=== PATIENT | female | born 1975 | race Caucasian/White ===

== ENCOUNTER 2018-10-02 20:18 | Emergency (ER) | payer SELFPAY ==
--- NOTE | 2018-10-02 21:22 | ED ---
Lower Extremity - HPI Summary HPI Summary: 42-year-old female presents with right foot and ankle injuries today. States that the dresser and bookcase landed on her right foot and right ankle. States she is able to ambulate with some pain. She denies any previous fracture to the area. No numbness or tingling. Has tenderness over lateral malleolus and top of right foot. - History of Current Complaint Chief Complaint: EDExtremityLower Stated Complaint: HURT ANKLE PER PT Time Seen by Provider: 10/02/18 20:25 Pain Intensity: 8 - Allergies/Home Medications Allergies/Adverse Reactions: Allergies Allergy/AdvReac Type Severity Reaction Status Date / Time lanocaine Allergy Palpitation Uncoded 10/02/18 20:21 s novacaine Allergy Palpitation Uncoded 10/02/18 20:21 s Home Medications: Home Medications busPIRone TAB* [Buspar TAB*] 10 mg PO TID 10/02/18 [History Confirmed 10/02/18] PMH/Surg Hx/FS Hx/Imm Hx Endocrine/Hematology History: Denies: Hx Anticoagulant Therapy Respiratory History: Denies: Hx Asthma Infectious Disease History: No Infectious Disease History: Denies: Traveled Outside the [place] in Last 30 Days - Family History Known Family History: Positive: Non-Contributory - Social History Alcohol Use: None Substance Use Type: Reports: None Smoking Status (MU): Heavy Every Day Tobacco Smoker Review of Systems Negative: Fever Negative: Chest Pain Negative: Shortness Of Breath Positive: Other - right foot pain All Other Systems Reviewed And Are Negative: Yes Physical Exam Triage Information Reviewed: Yes Vital Signs On Initial Exam: Initial Vitals Temp Pulse Resp BP Pulse Ox 98.1 F 60 16 99/62 99 10/02/18 20:21 10/02/18 20:21 10/02/18 20:21 10/02/18 20:21 10/02/18 20:21 Vital Signs Reviewed: Yes Appearance: Positive: Well-Appearing Skin: Positive: Warm, Dry Head/Face: Positive: Normal Head/Face Inspection Eyes: Positive: Normal, Conjunctiva Clear ENT: Positive: Pharynx normal Respiratory/Lung Sounds: Positive: Clear to Auscultation, Breath Sounds Present Cardiovascular: Positive: Normal, RRR Musculoskeletal: Positive: Strength/ROM Intact - right foot, Other - tenderness lateral malleolus and across top of right foot Procedures - Splinting foot Location: right foot Hand-Made Type: orthoglass Splint: posterior walking Pre-Proc Neuro Vasc Exam: normal Post-Proc Neuro Vasc Exam: normal Diagnostics - Vital Signs Vital Signs Temp Pulse Resp BP Pulse Ox 10/02/18 20:21 98.1 F 60 16 99/62 99 - Laboratory Lab Statement: Any lab studies that have been ordered have been reviewed, and results considered in the medical decision making process. - Radiology foot Radiology Interpretation Completed By: ED Physician Summary of Radiographic Findings: possible cuneiform fracture ankle Radiology Interpretation Completed By: ED Physician Summary of Radiographic Findings: no fracture Lower Extremity Course/Dx - Course Course Of Treatment: 42-year-old female presents with right foot and ankle injuries today. States that the dresser and bookcase landed on her right foot and right ankle. States she is able to ambulate with some pain. She denies any previous fracture to the area. No numbness or tingling. Has tenderness over lateral malleolus and top of right foot. On exam neurovascular intact. Tenderness to lateral malleolus and top of right foot. X-ray read by me as possible cuneiform fracture. Placed in a posterior walking splint and gave crutches. told to Ice and elevate. Told to follow up with ortho. Told to call for final reading tomorrow as questionable fracture. Patient understands agrees plan. - Diagnoses Differential Diagnosis/HQI/PQRI: Positive: Fracture (Closed), Sprain, Strain Provider Diagnoses: Injury of right foot, Right ankle pain Discharge - Sign-Out/Discharge Documenting (check all that apply): Patient Departure Patient Received Moderate/Deep Sedation with Procedure: No - Discharge Plan Condition: Good Disposition: HOME Patient Education Materials: Foot Fracture in Adults (ED) Referrals: Christine Richardson MD [Medical Doctor] - Additional Instructions: I am reading xray as potential fracture, final read will be available tomorrow Use crutches and stay nonweight bearing Keep splint on area and keep dry Call ortho to set up appointment for follow up Use ibuprofen or tyenlol for pain every 6 hours Ice, elevate Return to ED if develop any new or worsening symptoms - Billing Disposition and Condition Condition: GOOD Disposition: Home
[2018-10-02 21:55] VITALS: BP 95/54
== END 2018-10-02 21:54 | disposition home or self-care (01) ==
LOC: ED 20:18
DX: S99.921A Unspecified injury of right foot, initial encounter (principal); M25.571 Pain in right ankle and joints of right foot; W20.8XXA Other cause of strike by thrown, projected or falling object, initial encounter; Y92.9 Unspecified place or not applicable; Z88.4 Allergy status to anesthetic agent; F17.210 Nicotine dependence, cigarettes, uncomplicated; Z79.899 Other long term (current) drug therapy
CPT/HCPCS: 99282

== ENCOUNTER 2018-11-18 11:38 | Emergency (ER) | payer SELFPAY ==
[2018-11-18] MEDS ORDERED: NS 0.9% 1000 ML** 1,000 ML IV ONE (11:47)
[2018-11-18] MEDS ORDERED: Iodixanol* (CONTRAST) 320 MG/ML 100 ML SDV IV ONE (12:08)
--- NOTE | 2018-11-18 12:40 | ED ---
Neurological HPI - HPI Summary HPI Summary: This patient is a 43 year old F presenting to [facility] accompanied by with a chief complaint of heart palpitations since AM 11/18/18. Patient states that she woke up with a BURTON that resolved w tylenol. She states she has a history of chronic headaches and this is typical for her. Afterwards, she was driving a friend to work she experienced heart palpitation and felt dizzy. Patient states when she pulled over her chest palpitations worsened and left arm went numb. She denies chest pain. Patient reports nausea and blurred vision (a/w headache , now resolved). Patient denies fever and vomiting. No ROCKY. No hx GA, PE, CHF + tobacco use Allergies Allergy/AdvReac Type Severity Reaction Status Date / Time lanocaine Allergy Palpitation Uncoded 10/02/18 20:21 s novacaine Allergy Palpitation Uncoded 10/02/18 20:21 s Home Medications Medication Instructions Recorded Confirmed Type Amphetamine/Dextroamph ER(NF) 15 mg PO TID 11/18/18 11/18/18 History [Adderal XR (NF)] Citalopram TAB* [CeleXA TAB*] 40 mg PO DAILY 11/18/18 11/18/18 History - History of Current Complaint Chief Complaint: EDNeurologicalDeficit Stated Complaint: HEART PALPATATIONS/CANT FEEL LEFT SIDE OF BODY PER Time Seen by Provider: 11/18/18 11:47 Hx Obtained From: Patient Onset/Duration: Sudden Onset, Still Present Timing: Constant Current Severity: Severe Headache Location: Frontal Pain Intensity: 9 Pain Scale Used: 0-10 Numeric Character: Lightheaded, Dizzy, Numbness/Tingling - Left arm Aggravating: Nothing Alleviating: Nothing - Allergy/Home Medications Allergies/Adverse Reactions: Allergies Allergy/AdvReac Type Severity Reaction Status Date / Time lanocaine Allergy Palpitation Uncoded 10/02/18 20:21 s novacaine Allergy Palpitation Uncoded 10/02/18 20:21 s Home Medications: Home Medications Amphetamine/Dextroamph ER(NF) [Adderal XR (NF)] 15 mg PO TID 11/18/18 [History Confirmed 11/18/18] Citalopram TAB* [CeleXA TAB*] 40 mg PO DAILY 11/18/18 [History Confirmed ] PMH/Surg Hx/FS Hx/Imm Hx Endocrine/Hematology History: Denies: Hx Anticoagulant Therapy, Hx Diabetes Cardiovascular History: Denies: Hx Hypertension Respiratory History: Denies: Hx Asthma History: Denies: Hx Renal Disease Infectious Disease History: No Infectious Disease History: Denies: Traveled Outside the [place] in Last 30 Days - Family History Known Family History: Positive: Non-Contributory - Social History Alcohol Use: None Substance Use Type: Reports: None Smoking Status (MU): Heavy Every Day Tobacco Smoker Review of Systems Positive: Blurred Vision Positive: Palpitations, Chest Pain Positive: Headache, Numbness - left arm All Other Systems Reviewed And Are Negative: Yes Physical Exam - Summary Physical Exam Summary: Constitutional: Well-developed, Well-nourished, Alert. (-) Distressed Skin: Warm, Dry HENT: Normocephalic; Atraumatic Eyes: Conjunctiva normal Neck: Musculoskeletal ROM normal neck. (-) JVD Cardio: Rhythm regular, bradycardic, Heart sounds normal; Intact distal pulses; Radial pulses are 2+ and symmetric. (-) Murmur Pulmonary/Chest wall: Effort normal. (-) Respiratory distress, (-) Wheezes, (-) Rales Abd: Soft. (-) Tenderness, (-) Distension, (-) Guarding, (-) Rebound Musculoskeletal: (-) Edema, thin extremities, long fingers, marfanoid appearance Lymph: (-) Cervical adenopathy Neuro: Alert, Oriented x3, Strength normal, Cranial nerves II-XII are grossly intact. (-) Dysmetria, (-) Nystagmus, (-) Ataxia by finger to nose testing, dec sensation t left arm otherwise sensation intact Psych: Mood and affect Normal Triage Information Reviewed: Yes Vital Signs On Initial Exam: Initial Vitals Temp Pulse Resp BP Pulse Ox 98.8 F 66 18 108/63 98 11/18/18 11:40 11/18/18 11:40 11/18/18 11:40 11/18/18 11:40 11/18/18 11:40 Vital Signs Reviewed: Yes Diagnostics - Vital Signs Vital Signs Temp Pulse Resp BP Pulse Ox 11/18/18 11:40 98.8 F 66 18 108/63 98 - Laboratory Result Diagrams: 11/18/18 12:39 11/18/18 12:38 Lab Statement: Any lab studies that have been ordered have been reviewed, and results considered in the medical decision making process. - Radiology Chest Xray Radiology Interpretation Completed By: Radiologist Summary of Radiographic Findings: Chest Xray reveals, per radiologist, IMPRESSION: NO ACTIVE CARDIOPULMONARY DISEASE IS NOTED. ED Physician has reviewed this report. - CT Brain CT CT Interpretation Completed By: Radiologist Summary of CT Findings: Brain CT reveals, per radiologist, IMPRESSION: No intracranial mass or hemorrhage is noted. There appears to be a scalp hemangioma. ED Physician has reviewed this report. Brain CTA CT Interpretation Completed By: Radiologist Summary of CT Findings: Brain CTA reveals, per radiologist, IMPRESSION: 1. No acute occlusive disease, aneurysm or significant stenosis in the head. 2. No acute occlusive disease or stenosis in the neck. ED Physician has reviewed this report. - EKG 1219 Cardiac Rate: Bradycardia - 50 bpm EKG Rhythm: Sinus Bradycardia ST Segment: Normal Ectopy: None EKG Comparison: Other Summary of EKG Findings: An EKG at 1219 reveals bradycardia sinus rhythm at 50 bpm, nml axis, nml intervals. No STEMI. No acute changes. No prior EKG to compare. 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: Both Correctly Best Gaze (Only Horizontal Eye Movement): Normal Visual Field Testing: No Visual Loss Facial Paresis-Pt to Smile & Close Eyes or Grimace Symmetry: Normal/Symmetrical Motor Function - Right Arm: No Drift-Holds 10 Seconds Motor Function - Left Arm: No Drift-Holds 10 Seconds Motor Function - Right Leg: No Drift-Holds 10 Seconds Motor Function - Left Leg: No Drift-Holds 10 Seconds Limb Ataxia-Must be out of Proportion to Weakness Present: Absent Sensory (Use Pinprick to Test Arms/Legs/Trunk/Face): Pinprick Less on Affected Best Language (Describe Picture, Name Items): No Aphasia Dysarthria (Read Several Words): Normal Extinction and Inattention: No Abnormality Total Score: 1 Re-Evaluation - Re-Evaluation First Eval Re-Evaluation Time: 14:29 Change: Improved - Patient feeling better, wants to take home anti anxiety medication buspar, OK to take. CT/CTA negative, will give IVF and toradol. Comment: Patient states that she feels better and has improved she is ready for discharge. No longer having dec sensation to arm. Still denies CP. Palpitations resolved. Second Eval Re-Evaluation Time: 14:51 Change: Improved Comment: D/w patient recommendations by Dr. Durbin to remain for observation and MRI. Clubbing admission, states she'll return for worsening symptoms. Patient educated that she could have undiagnosed dissection, or stroke with risk of cardiac arrest. Patient is AAOx4 with clear sensorium, no signs of intoxication , no SI/HI, a normal gait and normal speech pattern and capacity to refuse care. I explained to the patient the risks of leaving AMA to include , disability, and loss of function. I had an extensive conversation with the patient regarding return precautions and encouraged them to return sooner for any worsening condition, new symptoms or ANY other concerns. Course/Dx - Course Course Of Treatment: 43 y/o F w hx vascular migraines, tobacco use p/w headache , L arm tingling, palpitations. - PE well appearing, NAD NIHSS 1 for subjective L arm tingling, now resolved. Denies CP, SOB. Low suspicion cardiac process. CT head, CTA negative. Labs unremarkable. Will obs, d/w neurology re: dispo after re evaluation. 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 - Diagnoses Provider Diagnoses: Heart palpitations, Paresthesia of arm, Headache Is Visit Related: No Discharge ED - Sign-Out/Discharge Documenting (check all that apply): Patient Departure - discharge Patient Received Moderate/Deep Sedation with Procedure: No - Discharge Plan Condition: Stable Disposition: AGAINST MEDICAL ADVICE Patient Education Materials: Heart Palpitations (DC), Paresthesia (ED) Referrals: No Primary Care Phys,NOPCP [Primary Care Provider] - Additional Instructions: You were seen in the emergency department for palpations and numbness in your arm. Your lab work was unremarkable. Your head CT did not show any acute abnormalities. We recommended that you stay for observation however you declined. If you change your mind we would be happy to see you back in the emergency department Please follow up with your primary care doctor in next 2-3 days and return to emergency department for worsening or concerning symptoms. It was a pleasure taking care of you today. - Billing Disposition and Condition Condition: STABLE Disposition: Against Medical Advice - Attestation Statements Document Initiated by Tani: Yes Documenting Scribe: Toyin Charles Provider For Whom Tani is Documenting (Include Credential): Dr. Hubert Rojas MD Scribe Attestation: I, Toyin Charles , scribed for Dr. uHbert Rojas MD on 11/25/18 at 1447. Scribe Documentation Reviewed: Yes Provider Attestation: The documentation as recorded by the scribe, Toyin Charles accurately reflects the service I personally performed and the decisions made by me, Dr. Hubert Rojas MD Status of Scribe Document: Ready
[2018-11-18 12:45] LABS: ABS Basophils 0.1 10^3/ul (0-0.2); ABS Eosinophils 0.1 10^3/ul (0-0.6); ABS Lymphocytes 2.4 10^3/ul (1.0-4.8); ABS Monocytes 0.5 10^3/ul (0-0.8); ABS Neutrophils 3.9 10^3/ul (1.5-7.7); Eosinophil % 2.1 %; Hematocrit 38 % (35-47); Mean Corpuscular HGB Conc 34 g/dL (31-36); Mean Corpuscular Hemoglobin 32 pg (27-31); Mean Corpuscular Volume 95 fL (80-97); Mean Platelet Volume 7.3 fL (7.4-10.4); Nucleated Red Blood Cells % 0.1; Platelet Count 202 10^3/uL (150-450); Red Blood Count 4.03 10^6 /uL (3.70-4.87); Red Cell Distribution Width 14 % (10-15); White Blood Count 7.1 10^3/uL (3.5-10.8)
[2018-11-18] MEDS ORDERED: Ketorolac INJ* 30 MG/ML 1 ML VIAL IV ONE (12:56)
[2018-11-18 13:02] LABS: Activated Partial Thrombo Time 30.4 seconds (26.0-38.0); INR 0.99 (0.82-1.09)
[2018-11-18 13:04] LABS: ALT 13 U/L (7-52); AST 15 U/L (13-39); Albumin 3.9 g/dL (3.2-5.2); Albumin/Globulin Ratio 1.6 (1-3); Alkaline Phosphatase 57 U/L (34-104); Anion Gap 3 mmol/L (2-11); BUN/Creatinine Ratio 17.8 (8-20); Blood Urea Nitrogen 13 mg/dL (6-24); CO2 Carbon Dioxide 28 mmol/L (22-32); Chloride 105 mmol/L (101-111); Cholesterol 149 mg/dL; EGFR African American 104.8 (>60); EGFR Non-African American 86.6 (>60); Globulin 2.5 g/dL (2-4); Glucose 85 mg/dL (70-100); HDL Cholesterol 57.5 mg/dL; LDL Cholesterol 79 mg/dL; Sodium 136 mmol/L (135-145); Total Protein 6.4 g/dL (6.4-8.9); Triglycerides 65 mg/dL
[2018-11-18 13:09] LABS: HCG Pregnancy < 0.60 mIU/mL
[2018-11-18 14:20] LABS: TSH (Thyroid Stimulating Horm) 1.55 mcIU/mL (0.34-5.60)
[2018-11-18 15:12] VITALS: BP 0/0
--- NOTE | 2018-11-18 17:19 | CONS ---
NEUROLOGY CONSULTATION NOTE: DATE OF CONSULT: 11/18/18 - EMERGENCY DEPT. REASON FOR CONSULT: Consulted by activating a ann riggins. CHIEF COMPLAINT: Chest pain radiating down the left upper extremity. HISTORY OF PRESENT ILLNESS: Ms. Gala Baker is a 43-year-old right-handed female who has history of "vascular migraines" and tobacco use, who presented to [facility] today after having a headache, chest pain, and left arm numbness. The symptoms started gradually. The patient stated that she woke up having a headache this morning. Her last known well was last night around 10 o'clock before she fell asleep. Headache was described as bifrontal pain, nonradiating, 8/10 in severity, associated with photo and phonophobia and nausea. These are typical for her migraine headaches. She has a headache 1-2 days a month mostly before her menstrual cycle. She sees a neurologist in [place] by the name of Dr. Bemrudez. She developed numbness at approximately 10: 30 a.m. today. She was driving her [id number]-zy-hou to work. She dropped her tpckgh-hm-kvl off and then told her to drive because she was feeling heart palpitations and felt dizzy. She pulled over and chest pain worsened. Currently, when she was evaluated, she denied any acute chest pain. CT head was done in the ED and showed no acute intracranial abnormality. There was a possible posterior scalp sebaceous cyst. CTA head and neck was also obtained and showed no evidence of aneurysm, occlusive disease, or significant stenosis in the head or the neck. 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 MEDICATIONS: 1. Adderall 15 mg p.o. t.i.d. 2. Citalopram 40 mg p.o. daily. ALLERGIES: LIDOCAINE and NOVOCAIN. FAMILY HISTORY: No family history of stroke or seizures. She has a son and cousin who suffer from Dottie-Danlos and Marfan syndrome. SOCIAL HISTORY: She lives with her . She is currently unemployed. She smokes 1 pack per day for the past 1 year. She denied any alcohol use. She quit smoking marijuana 4 months ago. REVIEW OF SYSTEMS: A 14-point review of systems was obtained and otherwise negative except for what was mentioned in the HPI. PHYSICAL EXAM: Vitals: Temperature of 97.6, pulse of 54, respiratory rate of 16, oxygen saturation of 98%, blood pressure of 108/63. General: Well- nourished, well- developed, tall appearing female, in no acute distress. She has got elongated facial features. Head: Atraumatic, normocephalic. Eyes: Conjunctivae/corneas are clear. Neck is supple and symmetrical with no carotid bruits. Cardiovascular: Regular rate and rhythm with normal S1, S2. Respirator : Clear to auscultation bilaterally. No wheezing or rhonchi. Extremities: Normal range of motion with no cyanosis. No hammertoes or high arches. Skin: No skin lesions or lacerations. Psych: Flat affect with slightly depressed mood , but overall easy to establish rapport. Neurological Examination: Mental Status: Awake, alert, and oriented to person, place, time, and general circumstances. Her speech and language including expression, comprehension, and repetition were assessed and found to be normal. Cranial Nerves: Pupils are equal, round, and reactive to light. Extraocular muscles are intact. Normal sensation in the face bilaterally. No facial asymmetry and tongue is symmetrical and midline with no atrophy or fasciculation. Motor Examination: 5 /5 strength in the upper and lower extremities bilaterally. Sensation: Slightly reduced sensation to light touch and pinprick on the left arm, but not face or leg. The symptoms resolved after 1 hour when she was reevaluated after the stroke alert. Coordination: Normal cisign-lk-hqiw and euwa-fn-cdkv testing. Reflexes 2+ throughout with 1 at the ankles bilaterally. Gait: Normal stance and gait. No ataxia. DIAGNOSTIC STUDIES/LAB DATA: WBC of 7, hemoglobin of 13, hematocrit of 38, platelet count of 202. INR is 0.99. Sodium 136, potassium 4, chloride of 105, anion gap of 3, BUN of 13, creatinine is 0.73. AST is 15, ALT is 13. TSH is 1.55. Imaging studies as dictated in the HPI. ASSESSMENT AND RECOMMENDATIONS: Ms. Gala Baker is a 43-year-old female with history of migraine headaches who presented with chest pain radiating to the left upper extremity and increasing headaches. The patient stated that these are typical for her migraine headaches. She has no significant vascular risk factors except that she is on Adderall and she uses tobacco. Her neurological examination is nonfocal. NIH Stroke Scale was 1, but then improved to 0 within 1 hour. The NIH of 1 was for sensory abnormality in the left upper extremity. Based on the history and clinical examination, I suspect the patient has a complicated migraine headache. Defer further workup for her chest pain to the primary team. I am concerned that the patient does have Marfan syndrome, the patient manifests phenotypically as someone who would have Marfan, and therefore I informed her that this subgroup of patients may develop vascular abnormality such as vascular dissections, carotid and vertebral disease. The patient stated that she follows up closely with her outpatient neurologist, Dr. Bermudez, in [place] and she would prefer not to be admitted to the hospital for further evaluation. Given her unremarkable examination and her benign CTA, we agree to discharge the patient once her cardiac workup was complete. I encouraged the patient to take magnesium 400 mg daily, especially during the time when her premenstrual headaches present. I encouraged her to discuss this further with her primary care doctor. Other interventions such as triptan therapy can be given days prior to her menses for prophylactic therapy. Defer further management to her neurologist. [id number] #: [id number] YOLIS
== END 2018-11-18 15:10 | disposition left against medical advice (07) ==
LOC: ED 11:38
DX: R00.2 Palpitations (principal); R20.2 Paresthesia of skin; F17.200 Nicotine dependence, unspecified, uncomplicated; Z88.4 Allergy status to anesthetic agent; Z79.899 Other long term (current) drug therapy
CPT/HCPCS: 36415; 70450; 70496; 70498; 71045; 80053; 80061; 83605; 84443; 84484; 84702; 85025; 85610; 85730; 93005; 96361; 96374; 99284; J1885; Q9967

== ENCOUNTER 2018-11-28 12:14 | Emergency (ER) | payer SELFPAY ==
[2018-11-28] MEDS ORDERED: Aspirin 81 mg CHEW TAB* 81 MG TAB.CHEW PO ONE (12:51)
[2018-11-28 13:12] LABS: ABS Basophils 0.1 10^3/ul (0-0.2); ABS Eosinophils 0.2 10^3/ul (0-0.6); ABS Lymphocytes 2.2 10^3/ul (1.0-4.8); ABS Monocytes 0.5 10^3/ul (0-0.8); ABS Neutrophils 4.5 10^3/ul (1.5-7.7); Eosinophil % 2.5 %; Hematocrit 37 % (35-47); Hemoglobin 12.8 g/dL (12.0-16.0); Lymphocyte % 29.1 %; Mean Corpuscular HGB Conc 34 g/dL (31-36); Mean Corpuscular Hemoglobin 33 pg (27-31); Mean Corpuscular Volume 95 fL (80-97); Mean Platelet Volume 7.5 fL (7.4-10.4); Nucleated Red Blood Cells % 0.1; Platelet Count 211 10^3/uL (150-450); Red Blood Count 3.95 10^6 /uL (3.70-4.87); Red Cell Distribution Width 14 % (10-15); White Blood Count 7.4 10^3/uL (3.5-10.8)
[2018-11-28 13:19] LABS: INR 1.03 (0.82-1.09)
[2018-11-28 13:21] LABS: Activated Partial Thrombo Time 30.8 seconds (26.0-38.0)
--- NOTE | 2018-11-28 13:23 | ED ---
HPI Chest Pain - HPI Summary HPI Summary: The pt is a 43 yr old female presenting to [facility] c/o chest pain beginning 2018. She previously visited [facility] on 11/18 for heart palpitations and left arm numbness but was discharged home. She notes that she has been having this CP ever since her visit. The CP is described as feeling like someone punching her in the right side of the chest and radiates to her right shoulder blade and to the left side of her chest. The pain is constant and worsened last night. She rates her current pain severity due to the CP a 7/10. She initially thought that the pain was caused by stress since she lives a stressful life. When she lies down on her left side she is unable to breathe and in the morning today she was having trouble breathing while eating breakfast. She took one baby aspirin around 0800 and her right sided pain went away around 1010 but came back @ 1030. Her left sided pain never left. She also notes that her arms and legs felt tingly and had intermittent left arm pain on the way to the ED. Her CP is worse when taking deep breaths. She also reports some dizziness and fatigue but denies any fever or cough. She takes Citalopram 40 mg and Buspirone 10 mg 3x a day. She is a smoker and has FHx of cardiac disease. She is currently on her menstrual period and her vital signs while in the room: HR 46 bpm, BP 101/64, and O2 Sat 99 %. Allergies Allergy/AdvReac Type Severity Reaction Status Date / Time Penicillins Allergy Unknown Verified 11/28/18 12:24 Reaction Details lanocaine Allergy Palpitation Uncoded 10/02/18 20:21 s novacaine Allergy Palpitation Uncoded 10/02/18 20:21 s Home Medications Medication Instructions Recorded Confirmed Type Amphetamine/Dextroamph ER(NF) 15 mg PO TID 11/18/18 11/18/18 History [Adderal XR (NF)] Citalopram TAB* [CeleXA TAB*] 40 mg PO DAILY 11/18/18 11/18/18 History - History of Current Complaint Chief Complaint: EDChestPainROMI Time Seen by Provider: 11/28/18 12:36 Hx Obtained From: Patient Hx Last Menstrual Period: Currently on menstrual period, 11/28/18 Onset/Duration: Started Days Ago, Atraumatic, Still Present Time of Onset: 08:00 - CP worsened this morning Timing: Constant, Lasting Days Initial Severity: Moderate Current Severity: Moderate Pain Intensity: 7 Pain Scale Used: 0-10 Numeric Chest Pain Location: Discrete at: - left side and right side Chest Pain Radiates: Yes Chest Pain Radiates To:: Shoulder - right shoulder Character: Other: - "punching" in the chest Aggravating Factor(s): Deep Breaths Alleviating Factor(s): Medication - baby aspirin Associated Signs and Symptoms: Positive: Chest Pain, Dizziness, Shortness of Breath. Negative: Fever, Cough - Allergy/Home Medications Allergies/Adverse Reactions: Allergies Allergy/AdvReac Type Severity Reaction Status Date / Time Penicillins Allergy Unknown Verified 11/28/18 12:24 Reaction Details lanocaine Allergy Palpitation Uncoded 10/02/18 20:21 s novacaine Allergy Palpitation Uncoded 10/02/18 20:21 s PMH/Surg Hx/FS Hx/Imm Hx Previously Healthy: No Endocrine/Hematology History: Denies: Hx Anticoagulant Therapy, Hx Diabetes Cardiovascular History: Denies: Hx Hypertension Respiratory History: Denies: Hx Asthma History: Denies: Hx Renal Disease Neurological History: Reports: Hx Migraine Psychiatric History: Reports: Hx Anxiety - Surgical History Surgical History: None Infectious Disease History: No Infectious Disease History: Denies: Traveled Outside the [place] in Last 30 Days - Family History Known Family History: Positive: Cardiac Disease - Social History Alcohol Use: None Substance Use Type: Reports: None Smoking Status (MU): Heavy Every Day Tobacco Smoker Review of Systems Positive: Fatigue. Negative: Fever Positive: Chest Pain Positive: Shortness Of Breath. Negative: Cough Gastrointestinal: Negative Positive: other - currently with menses Musculoskeletal: Negative Skin: Negative Neurological: Other - pos - dizziness Psychological: Normal All Other Systems Reviewed And Are Negative: Yes Physical Exam - Summary Physical Exam Summary: Appearance: Ill-appearing, moderate pain distress due to bilateral chest pain, thin Skin: Warm, color reflects adequate perfusion, dry Head: Normal Head/Face inspection, atraumatic Eyes: Conjunctiva clear ENT: Normal inspection Neck: Supple, no nodes, no JVD Respiratory: Lungs clear, normal breath sounds, no respiratory distress Cardio: RRR, No murmur, pulses normal, brisk capillary refill Abdomen: Soft, nontender Bowel sounds: Present Musculoskeletal: Strength Intact/ROM intact, no calf tenderness, no edema. Psychological: Normal Neuro: Alert, muscle tone normal, no focal deficit Triage Information Reviewed: Yes Vital Signs On Initial Exam: Initial Vitals Temp Pulse Resp BP Pulse Ox 99.1 F 61 14 97/54 95 11/28/18 12:21 11/28/18 12:21 11/28/18 12:21 11/28/18 12:21 11/28/18 12:21 Vital Signs Reviewed: Yes Procedures - Sedation Patient Received Moderate/Deep Sedation with Procedure: No Diagnostics - Vital Signs Vital Signs Temp Pulse Resp BP Pulse Ox 11/28/18 13:01 99 11/28/18 12:38 53 116/57 98 11/28/18 12:37 53 98 11/28/18 12:21 99.1 F 61 14 97/54 95 - Laboratory Lab Results: Lab Results 11/28/18 Range/Units 13:03 WBC 7.4 (3.5-10.8) 10^3/uL RBC 3.95 (3.70-4.87) 10^6 /uL Hgb 12.8 (12.0-16.0) g/dL Hct 37 (35-47) % MCV 95 (80-97) fL MCH 33 H (27-31) pg MCHC 34 (31-36) g/dL RDW 14 (10-15) % Plt Count 211 (150-450) 10^3/uL MPV 7.5 (7.4-10.4) fL Neut % (Auto) 60.3 % Lymph % (Auto) 29.1 % Kent % (Auto) 7.4 % Eos % (Auto) 2.5 % Baso % (Auto) 0.7 % Absolute Neuts (auto) 4.5 (1.5-7.7) 10^3/ul Absolute Lymphs (auto) 2.2 (1.0-4.8) 10^3/ul Absolute Monos (auto) 0.5 (0-0.8) 10^3/ul Absolute Eos (auto) 0.2 (0-0.6) 10^3/ul Absolute Basos (auto) 0.1 (0-0.2) 10^3/ul Absolute Nucleated RBC 0.0 10^3/ul Nucleated RBC % 0.1 Result Diagrams: 11/28/18 13:03 11/28/18 13:06 Lab Statement: Any lab studies that have been ordered have been reviewed, and results considered in the medical decision making process. - Radiology CXR Radiology Interpretation Completed By: Radiologist Summary of Radiographic Findings: Impression: No active cardiopulmonary disease. ED Physician has reviewed this report. - EKG 1216 Cardiac Rate: Bradycardia EKG Rhythm: Sinus Bradycardia - [address] Segment: Non-Specific Ectopy: None EKG Comparison: No Significant Change Summary of EKG Findings: Sinus Bradycardia @ 55 bpm. Nml AV/IV CT. Nml QTc. Non- specific ST-T wave changes. No ectopy. No acute changes. No significant changes from EKG done on 11/18/2018. Re-Evaluation - Re-Evaluation First Eval Re-Evaluation Time: 15:30 Change: Improved Comment: Pt states chest pain has resolved. Pt states she took her own anti- anxiety med, buspirone 10mg which was due, and she could not wait to have it prescribed here. Pt declines having an IV or the CTA (with dye) because she believes "what is in her body is in her body and she shouldn't put anything else into her body". Pt states "I just want to go". Pt will sign an AMA form for declining this test and further blood tests. Pt's boyfriend Michael witnesses this. Pt appears comfortable, lungs clear, heart bradycardic 55, but no other apparent abnormalities. Second Eval Re-Evaluation Time: 15:45 Change: Unchanged Comment: Pt given discharge instuctions. Chest Pain Course/Dx - Course Course Of Treatment: The pt is a 43 yr old female presenting to [facility] c/o chest pain beginning 11/18/2018. She previously visited [facility] on 11/18 for heart palpitations and left arm numbness and was discharged home. An EKG reveals: Sinus Bradycardia @ [address] bpm. Nml AV/IV CT. Nml QTc. Non-specific ST-T wave changes. No ectopy. No acute changes. No significant changes from EKG done on . A CXR reveals no active cardiopulmonary disease. In the ED course pt was given 243 mg Aspirin PO to augment the 81mg ASA that she took this AM. Pt medications reviewed this visit. Nurses notes reviewed. Allergies noted. The pt signs AMA papers declining CTA chest and further troponin measures. Pt's reasoning for AMA is she "believes what's in her her body is in her body and that she shouldn't put something that's outside her body into her body". Final Dx are chest pain and dyspnea and AMA discharge. The pt will be discharged home , AMA, with [facility] follow up. Pt is given discharge instructions despite her AMA disposition, and she is advised that she may return at any time for care. Pt's boyfriend Michael is witness to the AMA discussion with pt, and on her signed paperwork, and to the verbal and written DC instructions being given to pt. - Chest Pain Differential Diagnosis/HQI/PQRI: Acute IN, ACS, Chest Wall, GI Disease, Lower Respiratory Infection, Pulmonary Embolism - Diagnoses Provider Diagnoses: Chest pain, Dyspnea, Left against medical advice Discharge ED - Sign-Out/Discharge Documenting (check all that apply): Patient Departure - AMA discharge Patient Received Moderate/Deep Sedation with Procedure: No - Discharge Plan Condition: Stable Disposition: AGAINST MEDICAL ADVICE Patient Education Materials: Chest Pain (ED), Shortness of Breath (ED) Referrals: [facility] [Outside] - 1 Day Additional Instructions: Based on your lab tests we did not find any significant abnormalities that need treatment at this time. Based on your history and your family history Dr. Willis recommended that a CTA of your chest would help to evaluate for more serious causes of your chest pain. You declined to have this test, and you wished to leave before other blood tests were done to evaluate your heart ( troponin level). You signed an AMA (against medical advice) paper for this. While you were in the ER,with only aspirin for treatment, your chest pain resolved. We have given you a copy of your chest xray and your labs will print with these instructions. We have given you the phone number for the [facility] clinic who can see you within 1-2 days if needed, and they can be your primary care provider if desired. Please return to the ER if you have any new or worsening symptoms. We have provided you with discharge instructions even though you did not complete the full evaluation as recommended by Dr. Willis. Please understand that you may return at any time for further evaluation of your symptoms, that there is a physician in the ER available for your care 24 hours a day, and that the hospital would never refuse to treat you. - Billing Disposition and Condition Condition: STABLE Disposition: Against Medical Advice - Attestation Statements Document Initiated by Tani: Yes Documenting Scribe: Bandar Posey Provider For Whom Tani is Documenting (Include Credential): Talisha Willis MD Scribe Attestation: Bandar Henson, scribed for Talisha Willis MD on 12/21/18 at 2224. Scribe Documentation Reviewed: Yes Provider Attestation: The documentation as recorded by the zacibBandar mejia accurately reflects the service I personally performed and the decisions made by me, Talisha Willis MD Status of Scribe Document: Viewed
[2018-11-28 13:28] LABS: Creatine Kinase 40 U/L (10-223)
[2018-11-28 13:33] LABS: HCG Pregnancy < 0.60 mIU/mL
[2018-11-28 13:53] LABS: T4, Total 6.14 mcg/dL (6.09-12.23)
[2018-11-28 15:09] LABS: ALT 16 U/L (7-52); AST 16 U/L (13-39); Albumin 3.9 g/dL (3.2-5.2); Albumin/Globulin Ratio 1.4 (1-3); Alkaline Phosphatase 53 U/L (34-104); Anion Gap 5 mmol/L (2-11); BUN/Creatinine Ratio 15.6 (8-20); Blood Urea Nitrogen 12 mg/dL (6-24); CO2 Carbon Dioxide 28 mmol/L (22-32); Calcium 8.9 mg/dL (8.6-10.3); Chloride 106 mmol/L (101-111); EGFR African American 98.5 (>60); EGFR Non-African American 81.4 (>60); Globulin 2.8 g/dL (2-4); Glucose 81 mg/dL (70-100); Potassium 3.6 mmol/L (3.5-5.0); Sodium 139 mmol/L (135-145); Total Protein 6.7 g/dL (6.4-8.9)
[2018-11-28] MEDS ORDERED: Iohexol 350* (CONTRAST) 500 ML MDV IV ONE (15:13)
[2018-11-28 15:24] VITALS: BP 109/62
== END 2018-11-28 16:04 | disposition left against medical advice (07) ==
LOC: ED 12:14
DX: R07.9 Chest pain, unspecified (principal); R06.00 Dyspnea, unspecified; R00.1 Bradycardia, unspecified; Z53.21 Procedure and treatment not carried out due to patient leaving prior to being seen by health care provider; F17.210 Nicotine dependence, cigarettes, uncomplicated; Z88.0 Allergy status to penicillin
CPT/HCPCS: 36415; 71045; 80053; 82550; 82553; 83735; 84436; 84443; 84484; 84702; 85025; 85379; 85610; 85730; 93005; 99283; A9270-GY

== ENCOUNTER 2018-12-31 13:09 | Emergency (ER) | payer SELFPAY ==
[2018-12-31 13:25] VITALS: BP 106/63
--- NOTE | 2018-12-31 13:34 | UC ---
Head Injury HPI - HPI Summary HPI Summary: 43 yo female presents with head injury. 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 Feet went out from under her and she landed on her left buttocks and the back of her head hit the floor. No LOC. She was able to get to her feet. Came to be evaluated. Has not taken anything OTC for her discomfort. Currently she endorses left hip/buttock pain, posterior neck pain, and headache. Denies vision changes, dizziness, SOB, abdominal pain, n/v, saddle anesthesia, loss of bowel/bladder control, radiation of pain, numbness, or tingling. - History Of Current Complaint Chief Complaint: UCHeadInjury Stated Complaint: HEAD/HIP INJURY Time Seen by Provider: 12/31/18 13:34 Hx Obtained From: Patient Hx Last Menstrual Period: 12/26/18 Onset/Duration: Sudden Onset Severity Currently: Moderate Severity Initially: Moderate Pain Intensity: 7 Pain Scale Used: 0-10 Numeric - Allergies/Home Medications Allergies/Adverse Reactions: Allergies Allergy/AdvReac Type Severity Reaction Status Date / Time Penicillins Allergy Unknown Verified 11/28/18 12:24 Reaction Details lanocaine Allergy Palpitation Uncoded 10/02/18 20:21 s novacaine Allergy Palpitation Uncoded 10/02/18 20:21 s PMH/Surg Hx/FS Hx/Imm Hx - Additional Past Medical History Additional PMH: ADHD Psychological History: Anxiety, Depression Other History Of: Negative For: Anticoagulant Therapy - Surgical History Surgical History: Yes Surgery Procedure, Year, and Place: appy,exploritory,[facility] - Family History Known Family History: Positive: Cardiac Disease - Social History Occupation: Employed Full-time Lives: With Family Alcohol Use: None Substance Use Type: None Smoking Status (MU): Heavy Every Day Tobacco Smoker Review of Systems All Other Systems Reviewed And Are Negative: No Constitutional: Positive: Negative Skin: Positive: Negative Eyes: Positive: Negative ENT: Positive: Negative Respiratory: Positive: Negative Cardiovascular: Positive: Negative Gastrointestinal: Positive: Negative Genitourinary: Positive: Negative Motor: Positive: Negative Neurovascular: Positive: Negative Musculoskeletal: Positive: Other: - Left hip pain and neck pain Neurological: Positive: Headache Psychological: Positive: Negative Physical Exam - Summary Physical Exam Summary: GENERAL: NAD. WDWN. No pain distress. SKIN: Nodules on scalp - chronic per pt. HEENT: Head: AT/NC. No raccoon eyes or battles sign. Eyes: PERRLA. EOM intact. Conjunctiva clear without inflammation or discharge. No orbital pain Ears: Hearing grossly normal. TMs intact, no bulging, erythema, or edema. No hemotympanum Nose: Nasal mucosa pink and moist. NTTP maxillary and frontal sinus. Throat: Posterior oropharynx without exudates, erythema, or tonsillar enlargement. Uvula midline. NECK: Supple. Nontender. FROM CHEST: CTAB. No r/r/w. No accessory muscle use. Breathing comfortably and in no distress. CV: RRR. Pulses intact. Brisk cap refill. ABDOMEN: Soft. NTTP. Bowel sounds present MSK: FROM in B/L UEs and LEs with symmetric strength. Mild TTP at left buttock /SI. Negative TRISETN and SLR b/l. NEURO: A&Ox3. 3 word recall, remote, recent memory, ability to follow 2-step directions, and attention intact. CN: II: Peripheral belle intact. Vision normal. III, IV, : EOMI. No nystagmus. PERRLA. V: Sensations intact and symmetric. Opens mouth and clenches teeth. VII: No facial asymmetry. Forehead wrinkles. Grins, shuts eyes, frowns, puffs cheeks. VIII: Hearing intact to finger rub. IX, X: Swallows and coughs. Uvula midline. XI: Shrugs shoulders. Turns head against resistance. XII: No tongue deviation Yndpya-ib-sojx are intact. Gait with normal base. Romberg: maintains balance, no pronator drift. Normal speech. No facial drooping. PSYCH: Age appropriate behavior. Triage Information Reviewed: Yes Vital Signs: Initial Vital Signs Temp 98.9 F 12/31/18 13:22 Pulse 59 12/31/18 13:22 Resp 16 12/31/18 13:22 BP 106/63 12/31/18 13:22 Pulse Ox 99 12/31/18 13:22 Vital Signs Reviewed: Yes Diagnostics - Radiology CT brain Radiology Interpretation Completed By: Radiologist Summary of Radiographic Findings: IMPRESSION: NO ACUTE INTRACRANIAL PATHOLOGY. AIR-FLUID LEVEL WITHIN THE RIGHT MAXILLARY SINUS. CT cervical Radiology Interpretation Completed By: Radiologist Summary of Radiographic Findings: IMPRESSION: 1. No fracture or traumatic malalignment of cervical spine. 2. Dependent air-fluid level in the right maxillary sinus. Correlate for signs of trauma or sinusitis. 3. Multilevel spondylosis with a central disc extrusion at C5-C6 that results in at least mild spinal canal stenosis. No severe osseous encroachment of neural foramina. Head Injury Course/Dx - Course Course Of Treatment: CTs as above. Discussed XR of left hip - pt declined this today. Suspect headache/neck strain from fall with MSK hip/buttock pain. She was given naproxen in the clinic for her discomfort. Advised to rest, apply ice to areas of pain, and take tylenol/ibuprofen as directed for pain. F/u with Dr. Mayers of [facility] for a recheck early next week - Differential Dx/Diagnosis Provider Diagnosis: Fall, Head injury, Neck pain, Left hip pain Discharge ED - Sign-Out/Discharge Documenting (check all that apply): Patient Departure All imaging exams completed and their final reports reviewed: Yes - Discharge Plan Condition: Stable Disposition: HOME Patient Education Materials: Cervical Strain (ED), Head Injury (ED), Contusion in Adults (ED) Forms: *Work Release Referrals: No Primary Care Phys,NOPCP [Primary Care Provider] - Bal Mayers MD [Medical Doctor] - 4 Days Additional Instructions: If you develop a fever, shortness of breath, chest pain, new or worsening symptoms - please call your PCP or go to the ED immediately. The scan of your head and neck were normal today. I recommend that you rest and apply ice to the areas of your pain intermittently throughout the day to decrease pain. May take tylenol/ibuprofen as directed for discomfort. I recommend that you call Dr. Mayers (Worker's Comp/Occupational Health) at the number below to schedule an appointment for early next week for a recheck of your work related injury - Billing Disposition and Condition Condition: STABLE Disposition: Home
[2018-12-31] MEDS ORDERED: Naproxen TAB* 250 MG PO ONE (13:39)
== END 2018-12-31 14:50 | disposition home or self-care (01) ==
LOC: UCEAST 13:09
DX: S09.90XA Unspecified injury of head, initial encounter (principal); F90.9 Attention-deficit hyperactivity disorder, unspecified type; F17.290 Nicotine dependence, other tobacco product, uncomplicated; M54.2 Cervicalgia; M25.552 Pain in left hip; Z88.0 Allergy status to penicillin; Z88.4 Allergy status to anesthetic agent; W01.0XXA Fall on same level from slipping, tripping and stumbling without subsequent striking against object, initial encounter; Y92.89 Other specified places as the place of occurrence of the external cause
CPT/HCPCS: 70450; 72125; 99212; A9270-GY; G0463

== ENCOUNTER 2019-04-19 11:57 | Emergency (ER) | payer SELFPAY ==
--- NOTE | 2019-04-19 12:23 | ED ---
HPI Chest Pain - HPI Summary HPI Summary: 43 year old F presenting to [facility] accompanied by male field specialist complains of mid sternal chest pain radiating to LUQ and shortness of breath starting at 1100 today 04/19/2019, palpitations and light headedness starting at 1000 today . Patient denies back pain or abdominal pain, pain or swelling in bilateral lower extremities. The patient rates the pain 7/10 in severity. Symptoms aggravated by nothing. Symptoms alleviated by nothing. Patient has not had similar symptoms in the past. No recent colds. No recent injury/trauma. Medications reviewed. No cardiac hx, no hx DVT or PE, no GI hx, no hx thyroid disease. Positive FHx DVT/PE. Hx anxiety and anxiety attacks. Patient states she usually drinks 2 cups of coffee daily. Allergies noted. - History of Current Complaint Chief Complaint: EDChestPainROMI Time Seen by Provider: 04/19/19 12:14 Hx Obtained From: Patient Onset/Duration: Started Hours Ago, Still Present Timing: Constant Current Severity: Moderate Pain Intensity: 7 Pain Scale Used: 0-10 Numeric Chest Pain Location: Mid Sternal Chest Pain Radiates: Yes Chest Pain Radiates To:: Other - LUQ Aggravating Factor(s): Nothing Alleviating Factor(s): Nothing Associated Signs and Symptoms: Positive: Negative - back pain or abdominal pain , pain or swelling in bilateral lower extremities - Allergy/Home Medications Allergies/Adverse Reactions: Allergies Allergy/AdvReac Type Severity Reaction Status Date / Time Penicillins Allergy Unknown Verified 11/28/18 12:24 Reaction Details lanocaine Allergy Palpitation Uncoded 10/02/18 20:21 s novacaine Allergy Palpitation Uncoded 10/02/18 20:21 s Home Medications: Home Medications busPIRone TAB* [Buspar TAB*] 10 mg PO TID 04/19/19 [History Confirmed 04/19/19] PMH/Surg Hx/FS Hx/Imm Hx Endocrine/Hematology History: Denies: Hx Anticoagulant Therapy, Hx Diabetes Cardiovascular History: Denies: Hx Hypertension Respiratory History: Denies: Hx Asthma History: Denies: Hx Renal Disease Sensory History: Reports: Hx Contacts or Glasses Opthamlomology History: Reports: Hx Contacts or Glasses Neurological History: Reports: Hx Migraine Psychiatric History: Reports: Hx Anxiety - Surgical History Surgery Procedure, Year, and Place: app[place],[facility]oritory,[place] Infectious Disease History: No Infectious Disease History: Denies: Traveled Outside the [place] in Last 30 Days - Family History Known Family History: Positive: Cardiac Disease - Social History Alcohol Use: None Substance Use Type: Reports: None Hx Tobacco Use: Yes Smoking Status (MU): Heavy Every Day Tobacco Smoker Review of Systems Positive: Chest Pain, Other - palpitations Positive: Shortness Of Breath Negative: Abdominal Pain Musculoskeletal: Negative - back pain, pain or swelling in BLE Neurological/Mental Status: Other - light headedness All Other Systems Reviewed And Are Negative: Yes Physical Exam - Summary Physical Exam Summary: Constitutional: Well-developed, Well-nourished, Alert. (-) Distressed Skin: Warm, Dry HENT: Normocephalic; Atraumatic Eyes: Conjunctiva normal Neck: Musculoskeletal ROM normal neck. (-) JVD, (-) Stridor, (-) Tracheal deviation Cardio: Rhythm regular, rate normal, Heart sounds normal; Intact distal pulses; The pedal pulses are 2+ and symmetric. Radial pulses are 2+ and symmetric. (-) Murmur Pulmonary/Chest wall: Effort normal. (-) Respiratory distress, (-) Wheezes, (-) Rales; focal tenderness to palpation over left sternal border Abd: Soft, (-) tenderness, (-) Distension, (-) Guarding, (-) Rebound Musculoskeletal: (-) Edema Lymph: (-) Cervical adenopathy Neuro: Alert, Oriented x3 Psych: Mood and affect Normal Triage Information Reviewed: Yes Vital Signs On Initial Exam: Initial Vitals Temp Pulse Resp BP Pulse Ox 97.1 F 62 18 109/53 100 04/19/19 12:04 04/19/19 12:04 04/19/19 12:04 04/19/19 12:04 04/19/19 12:04 Vital Signs Reviewed: Yes Procedures - Sedation Patient Received Moderate/Deep Sedation with Procedure: No Diagnostics - Vital Signs Vital Signs Temp Pulse Resp BP Pulse Ox 04/19/19 12:04 97.1 F 62 18 109/53 100 - Laboratory Result Diagrams: 04/19/19 12:24 04/19/19 12:24 Lab Statement: Any lab studies that have been ordered have been reviewed, and results considered in the medical decision making process. - Radiology CXR Radiology Interpretation Completed By: Radiologist - NO ACTIVE CARDIOPULMONARY DISEASE. ED physician has reviewed this report. - EKG 1201 Cardiac Rate: NL - 62 BPM EKG Rhythm: Sinus Rhythm Summary of EKG Findings: No ischemic changes. ED physician has reviewed and interpreted this EKG Chest Pain Course/Dx - Course Course Of Treatment: 43 y/o F c/o mid sternal chest pain radiating to LUQ and shortness of breath starting at 1100 today 04/19/2019, palpitations and light headedness starting at 1000 today 04/19/2019. No cardiac hx. Hx anxiety. Upon physical exam, she has focal tenderness to palpation over left sternal border. Bloodwork results with no significant abnormalities except for MCH 33 and INR 1.10. First troponin 0.00. Second troponin 0.00. An EKG shows sinus rhythm 62 BPM and no ischemic changes. CXR shows NO ACTIVE CARDIOPULMONARY DISEASE. Patient will be discharged home with follow up from [facility] in 2 -3 days. Patient was instructed to return to Emergency Department for new or worsening symptoms. Patient understands and is agreeable to this plan. - Diagnoses Provider Diagnoses: Costochondritis, Chest wall pain Discharge ED - Sign-Out/Discharge Documenting (check all that apply): Patient Departure - Discharge Plan Condition: Stable Disposition: HOME Patient Education Materials: Chest Wall Pain (ED) Referrals: [facility] [Outside] - 2 Days Additional Instructions: Follow-up with [facility] in 2-3 days. Return to the emergency department for new or worsening symptoms. - Billing Disposition and Condition Condition: STABLE Disposition: Home - Attestation Statements Document Initiated by Lucase: Yes Documenting Scribe: Kia Rodriguez Provider For Whom Tani is Documenting (Include Credential): Mike Koch DO Scribe Attestation: Kia Henson, scribed for Mike Koch DO on 04/19/19 at 1612. Scribe Documentation Reviewed: Yes Provider Attestation: The documentation as recorded by the Kia dunn accurately reflects the service I personally performed and the decisions made by me, Mike Koch DO Status of Scribe Document: Viewed
[2019-04-19] MEDS ORDERED: NS 0.9% 1000 ML** 1,000 ML IV ONE (12:27)
[2019-04-19] MEDS ORDERED: Ketorolac INJ* 30 MG/ML 1 ML VIAL IV PUSH ONE (12:27)
[2019-04-19 12:43] LABS: ABS Basophils 0.1 10^3/ul (0-0.2); ABS Eosinophils 0.3 10^3/ul (0-0.6); ABS Lymphocytes 2.2 10^3/ul (1.0-4.8); ABS Monocytes 0.4 10^3/ul (0-0.8); Eosinophil % 3.8 %; Hematocrit 38 % (35-47); Hemoglobin 13.4 g/dL (12.0-16.0); Mean Corpuscular HGB Conc 35 g/dL (31-36); Mean Corpuscular Hemoglobin 33 pg (27-31); Mean Corpuscular Volume 94 fL (80-97); Platelet Count 201 10^3/uL (150-450); Red Blood Count 4.06 10^6 /uL (3.70-4.87); Red Cell Distribution Width 14 % (10-15)
[2019-04-19 12:46] LABS: INR 1.1 (0.82-1.09)
--- OUTSIDE RECORDS SUMMARY | 2019-04-19 12:46 | XMS REPORT | Continuity of Care Document ---
:1975 Author Organization 0001 - [email or web address] Address [address] [place] [address] Phone Care Team Providers Name Role Phone JOSE SWANN Unavailable Unavailable Allergies, Adverse Reactions, Alerts Substance Reaction Status DOXYCYCLINE HYCLATE nausea/vomiting Active penicillin V Nausea Active PROCAINE HCL rapid heartbeat (mild to moderate) Active lidocaine Itching Active Medications Medication Instructions Dosage Effective Dates Status Comments (start - stop) buspirone 10 mg take 1 tablet by - Active tablet oral route 3 times daily citalopram 40 mg take 1 tablet by 40 MG - Active tablet oral route every day Wellbutrin XL 150 mg take 1 tablet by 150 MG - Active 24 hr tablet, oral route every extended release day pantoprazole 40 mg take 1 tablet by 40 MG - Active tablet,delayed oral route every release day buspirone 10 mg take 1 tablet by - No Longer tablet oral route 3 times Active daily Problems Condition Effective Dates (start - stop) Clinical Status Alcohol abuse, in remission Mixed obsessional thoughts and acts Reactive depression Anxiety Tobacco abuse Tuberculosis screening Diarrhea, unspecified type Weight loss, unintentional Gastroesophageal reflux disease, esophagitis presence not specified Anxiety Anxiety Chronic midline low back pain with left-sided sciatica control counseling [place] of toe Toenail fungus Gastroesophageal reflux disease, esophagitis presence not specified Other chronic pain - Abnormal mammogram of both breasts Screening mammogram, encounter for Breast pain, right Gastroesophageal reflux disease, esophagitis presence not specified Left axillary pain Family history of breast cancer Gastroesophageal reflux disease, esophagitis presence not specified Acute pain of left shoulder Chronic midline low back pain with left-sided sciatica Other chronic pain Gastroesophageal reflux disease, esophagitis presence not specified Memory problem Acute pain of left shoulder Memory problem Gastroesophageal reflux disease, esophagitis presence not specified Chronic intractable headache, unspecified headache type Chronic intractable headache, unspecified headache type Sprain of right wrist, initial encounter Abnormal smell Ocular migraine Gastroesophageal reflux disease, esophagitis presence not specified Dysuria Cough Gastroesophageal reflux disease, esophagitis presence not specified Vertigo Acute non-recurrent maxillary sinusitis Right wrist pain Snapping right knee Finger numbness Acute left lower quadrant pain Headache above the eye region Postop check Encounter for removal of sutures - Sebaceous cyst - Benign skin lesion Sebaceous cyst - Left anterior knee pain Memory loss Radiculopathy, lumbar region Acute pain of right shoulder Memory loss Radiculopathy, lumbar region Stress at home Tick bite of neck, initial encounter ^ [place] of toe Memory loss Benign skin lesion Neoplasm of uncertain behavior of skin - Dizziness Radiculopathy, lumbar region Acute right ankle pain Sebaceous cyst Acute right ankle pain Occasional numbness/prickling/tingling of fingers and toes Sebaceous cyst Sprain of right ankle, unspecified ligament, subsequent encounter Sprain of other ligament of right ankle, initial encounter Bilateral foot pain Acquired bilateral pes cavus Plantar fasciitis, bilateral Radiculopathy, lumbar region Bilateral foot pain Pain in left foot Sprain of ligaments of lumbar spine, initial encounter Irritable Dizziness Radiculopathy, lumbar region Memory loss Back pain Skin scarring control counseling Eustachian tube disorder Sebaceous cyst Dental caries Recurrent loss without current Nausea Missed menstrual period Tenosynovitis of the hand Knee pain, bilateral Tenosynovitis of the hand Tenosynovitis of the hand Tenosynovitis of the hand Hand injury Leg cramps Palpitations Hand injury Chipped tooth Palpitations Leg cramps Hand numbness Memory loss GERD (gastroesophageal reflux disease) Leg cramps Headache Palpitations Sinusitis Back pain Wrist pain General medical exam for administrative purposes Screening for pulmonary TB Shoulder pain Abdominal pain Crush injury of foot Nausea Rib pain Chipped tooth RUQ abdominal pain Radiculitis, Thoracic or Lumbar Thumb pain Radiculitis, Thoracic or Lumbar Radiculitis, Thoracic or Lumbar Radiculitis, Thoracic or Lumbar Radiculopathy of lumbar region GERD (gastroesophageal reflux disease) Displacement, disc NOS w/o myelopathy Intervertebral disc protrusion Lumbar Sprain Or Strain Lumbar Sprain Or Strain Low back strain Amenorrhea Sebaceous cyst Anxiety Anxiety - Anxiety Anxiety - Anxiety Depression Anxiety - Depression - Routine Medical Exam - Routine Medical Exam Routine Procedures Procedure Date Procedure Unknown Results Test Name Date and Time Measure Units Reference Range Abnormal Flag Status Comments Unknown Encounters Encounter Practice Location Reason(s) Diagnoses Date Provider Providers Description For Visit Copied on Encounter 0001 - S Primary [employer], Care .[employer] JOSE. [address] [facility], [place], [facility], [place], [address]. [address], [place] tel:+ tel:+ [phone] 0001 - S Primary [employer], Care [employer] JOSE. [address] [facility], [address], [facility], [place], [address]. [address], [place] tel:+ tel: [phone] [address] [place] [address] Primary Alcohol abuse, in Shots, Care .[employer] remissionMixed JOSE. obsessional 9 [address] [facility] thoughts and , Street, actsReactive [facility] depressionAnxietyTo [place], bacco [address]. [address], [place] abuseTuberculosis tel: tel: screening [phone] [address] [place] [address] Primary Diarrhea, [employer], Care Function [employer] unspecified JOSE. typeWeight loss, 9 [address] [facility] unintentionalGastro , [place], esophageal reflux [place], [place], [place], [place], esophagitis [address]. [address], [place] presence not tel: tel:+ specifiedAnxiety [phone] [address] [facility] Primary Anxiety [facility] [employer], Care Function Space[place] [address], [place], [address], [place] tel:+ [phone] 0001 - S Primary Chronic midline low Nov- [employer], Care [place] back pain with 9 ATILIO. 33-57 left-sided [address], control Tarun counselingCorn [place], [place], toeToenail [address], [place] fungusGastroesophag tel:+ eal reflux disease, [phone] esophagitis presence not specifiedOther chronic pain 0001 - Lab - [facility] Abnormal mammogram Sep- [employer], of both 1 ATILIO. 33-57 breastsScreening 8 . Delta mammogram, Street, [place], [address], [place] tel:+ [phone] 0001 - S Primary Breast pain, [employer], Care [place] rightGastroesophage ATILIO. 33-57 al reflux disease, 8 [address], presence not Tar[place], [place], axillary painFamily [address], [place] history of breast tel:+ cancer [phone] 0001 - S Primary Gastroesophageal Yaron- [employer], [facility] [place] reflux disease, 3 ATILIO. 33-57 esophagitis 8 . Delta presence not [place], specifiedAcute pain Tarun of [place], [place], shoulderChronic [address], [place] midline low back tel:+ pain with [phone] left-sided sciaticaOther chronic pain 0001 - [facility] Primary Gastroesophageal June- [employer], [facility] [place] reflux disease, ATILIO. 33-57 esophagitis 8 . Delta presence not [place], specifiedMemory Tarun problemAcute pain [place], [place], of left shoulder [address], [place] tel:+ [phone] 0001 - S Primary Memory May- [employer], [facility] [place] problemGastroesopha ATILIO. 33-57 geal reflux 8 . Delta disease, Street, esophagitis Tarun [place], specified [address], [place] tel:+ [phone] 0001 - S Primary Chronic intractable Oct-2 [facility] [place] headache, 6[address]201 ATILIO. 33-57 unspecified 7 . Concan headache type [place], [place], [address], [place] tel:+ [phone] 0001 - [facility] Primary Chronic intractable Oct-1 [facility] [employer], [facility] [place] headache, 8-201 ATILIO. 33-57 unspecified 7 . Concan headache type [place], [place], [address], [place] tel:+ [phone] 0001 - [facility] Primary Sprain of right Sep-2 [employer] [facility] [employer], [facility] [place] wrist, initial 7-201 ATILIO. 33-57 encounterAbnormal 7 . Concan smellOcular [place], migraineGastroesoph [place], [place], [facility], [address], [place] esophagitis tel:+ presence not [phone] specified 0001 - [facility] Primary Dysuria May-0 [facility] [employer], [facility] [place] [address] ATILIO. 33[address]57 7 [place], [address], [place] tel:+ [phone] 0001 - [facility] Primary Cough Mar-0 [facility], [facility] [place] 2-201 ATILIO. 33-57 7 . [place], [address], [place] tel:+ [phone] 0001 - [facility] Primary Gastroesophageal Feb-0 [facility] [employer], [facility] [place] reflux disease, 3-201 ATILIO. 33-57 esophagitis 7 . Concan presence not [place], [place], [address], [place] tel:+ [phone] 0001 - [facility] Primary Acute non-recurrent Sam- [facility] [employer], [facility] [place] maxillary 8-201 ATILIO. 33-57 sinusitisRight 7 . Concan wrist painSnapping [place], [place], [address], [place] tel:+ [phone] 0001 - [facility] Primary Finger numbness Nov-0 [employer], [facility] [place] 4-201 ATILIO. 33-57 6 [place], [address], [place] tel:+ [phone] 0001 - [facility] Primary Acute left lower Oct-0 [facility] [employer], [facility] [place] quadrant 7-201 ATILIO. 33-57 painHeadache above 6 . [address] eye region [address], [place], [address], [place] tel:[phone] 0001 - [facility] Postop Sep- [facility], ENT/Facial checkEncounter for SIA. 30 33-57 Plastic removal of 6 [facility] suturesS[address]aceous [address], [facility] [address], cyst 355, [place], [place], [place], [address], [place] [address]. tel:+60 tel:[phone] 0001 - [facility] Benign skin Sep- [facility] [employer], ENT/Facial lesionSebaceous SIA. 30 33-57 Plastic cyst 6 [facility] , [facility] [address], [address], [place], [place], [place], [address], [place] [address]. tel:+60 tel:+[phone] 0001 - [facility] Primary Left anterior knee Charles-2 [facility], [facility] [place] pain 7 ATILIO. 33-57 6 [place], [address], [place] tel:[phone] 0001 - [facility] Primary Memory Aug- [facility] [employer], [facility] [place] lossRadiculopathy, 3 ATILIO. 33-57 lumbar regionAcute 6 . Delta pain of right Street, [place], [address], [place] tel:[phone] 0001 - [facility] Primary Memory Yaron- [facility] [facility] [employer], [facility] [place] lossRadiculopathy, 6-201 ATILIO. 33-57 lumbar region 6 [place], [address], [place] tel:[phone] 0001 - [facility] Primary Stress at homeTick Yaron-0 [facility] [employer], [facility] [place] bite of neck, 2- ATILIO. 33-57 initial encounter 6 . Delta ^[place] of toeMemory [place], [place], [address], [place] tel:[phone] 0001 - [facility] Benign skin Apr-0 [facility], ENT/Facial lesionNeoplasm of SIA. 30 33-57 Plastic uncertain behavior 6 [facility] of skin St, [facility], [facility], [place], [place], [place], [address], [place] [address]. tel:+ tel:+ [phone] 0001 - S Primary DizzinessRadiculopa Mar-2 [facility] [employer], [facility] [place] thy, lumbar region 5-201 ATILIO. 33-57 6 [place], [address], [place] tel:+ [phone] 0001 - [facility] Primary Acute right ankle Mar-2 [facility] [facility] [employer], [facility] [place] pain 1-201 ATILIO. 33-57 6 [place], [address], [place] tel:+ [phone] 0001 - [facility] Primary Sebaceous cyst Mar-0 [facility] [facility] [employer], Care [place] 7-201 ATILIO. 33-57 6 [place], [address], [place] tel:+ [phone] 0001 - S Primary Acute right ankle Mar-0 [facility] [facility] [employer], [facility] [place] painOccasional 4-201 ATILIO. 33-57 numbness/prickling/ 6 . Delta tingling of fingers Street, and toesSebaceous [place], [address], [place] tel:+ [phone] 0001 - [facility] Primary Sprain of right Feb-1 [facility] [employer], [facility] [place] ankle, unspecified 8-201 ATILIO. 33-57 ligament, 6 . [facility] subsequent [place], [place], [address], [place] tel:+ [phone] 0001 - S Primary Sprain of other Feb-1 [facility], [facility] [place] ligament of right 0-201 ATILIO. 33-57 ankle, initial 6 . [place], [address], [place] tel:[phone] 0001 - S Bilateral foot Feb-0 [facility], Podiatry painAcquired 9-201 AMANDEEP. 33-57 [place] bilateral pes [address], fasciitis, [address], [place] bilateral [place], [place], [address], [place] [address]. tel:+60 tel:[phone] 0001 - [facility] Primary Radiculopathy, Mar- [facility] [employer], [facility] [place] lumbar region 5-201 ATILIO. 33-57 6 [place], [address], [place] tel:[phone] 0001 - [facility] Primary Bilateral foot Sam- [facility] [facility], [facility] [place] painPain in left 8 ATILIO. 33-57 foot 6 [place], [address], [place] tel:[phone] 0001 - [facility] Primary Sprain of ligaments Dec [facility] [employer], [facility] [place] of lumbar spine, 0-201 ATILIO. 33-57 initial encounter 5 . [place], [address], [place] tel:[phone] 0001 - [facility] Primary Irritable Nov- [facility] [employer], [facility] [place] [address] AITLIO. 33-57 5 . [place], [address], [place] tel:[phone] 0001 - [facility] Primary DizzinessRadiculopa Oct-0 [facility], [facility] [place] thy, lumbar region 5-201 ATILIO. 33-57 5 . [place], [address], [place] tel:[phone] 0001 - [facility] Primary Memory lossBack Sep-0 [facility] [employer], [facility] [place] painSkin 4-201 ATILIO. 33-57 scarringBirth 5 . [place], [address], [place] tel:[phone] 0001 - [facility] Primary Eustachian tube Aug- [employer] [facility], [facility] [place] disorderSebaceous 7-201 ATILIO. 33-57 cystDental 5 . [facility] [place], [address], [place] tel:[phone] 0001 - [facility] Primary PregnancyNausea Aug- [facility] [employer], [facility] [place] 9-201 ATILIO. 33-57 5 . [place], [address], tel:[phone] 0001 - [facility] Primary Missed menstrual Aug-2 [facility], [facility] [place] period 3-201 ATILIO. 3357 5 . [place], [address], [place] tel:[phone] 0001 - [facility] Primary Tenosynovitis of Charles-0 [facility], [facility] [place] the handKnee pain, 1- ATILIO. 33-57 bilateral 5 . [place], [address], tel:[phone] 0001 - [facility] Primary Tenosynovitis of Yaron-1 [facility] [employer], [facility] [place] the hand ATILIO. 3357 5 . [place], [address], tel:[phone] 0001 - [facility] Primary Tenosynovitis of Yaron-0 [facility] [employer], [facility] [place] the hand 1 ATILIO. 33 5 . [place], [address], tel:[phone] 0001 - [facility] Primary Tenosynovitis of June-2 [facility], [facility] [place] the hand ATILIO. 3357 5 . [place], [address], tel:[phone] 0001 - [facility] Primary Hand injury June-2 [facility] [employer], [facility] [place] 8 ATILIO. 3357 5 . [place], [address], [place] tel:[phone] 0001 - [facility] Primary Leg June-2 [facility] [employer], [facility] [place] crampsPalpitationsH - ATILIO. 3357 and injuryChipped 5 . [place], [address], tel:[phone] 0001 - [facility] Primary May-0 [facility], [facility] [place] 7- ATILIO. 3357 5 . [place], [address], tel:[phone] 0001 - [facility] Primary PalpitationsLeg May-2 [facility], [facility] [place] cramps 7-201 ATILIO. 33 5 . [place], [address], [place] tel:[phone] 0001 - S Primary Hand numbness Mar-1 [employer] [facility], [facility] [place] 8-201 ATILIO. 33 5 . [place], [address], [place] tel:[phone] 2019 - S Primary Memory lossGERD Mar-1 [employer], [facility] [place] (gastroesophageal 3-201 ATILIO. reflux disease)Leg 5 . [place], [address], [place] tel:[phone] 2019 - [facility] Primary HeadachePalpitation Sam-0 [employer] [facility], [facility] [place] s 7-201 ATILIO. 33 5 . [place], [address], [place] tel:[phone] 2019 - [facility] Primary Sinusitis Dec-2 [employer] [facility] [employer], [facility] [place] 9-201 [place]IO. 4 . [place], [address], [place] tel:[phone] 0001 - S Primary Back pain Oct-1 [employer], [facility] [place] 7-201 [place]. 4 . [place], [address], [place] tel:[phone] 2019 - S Primary Wrist pain Oct-0 [employer], [facility] [place] 3-201 [place]ILIO. 4 . [place], [address], [place] tel:[phone] 2019 - [facility] Primary General medical Sep-2 [employer] [facility] [employer], [facility] [place] exam for 4-201 ATILIO. administrative 4 [place], [address], [place] tel:[phone] 2019 - [facility] Primary Screening for Sep-2 CANDOR Referring S Inc, Care [place] pulmonary TB 3-201 NURSE. . Provider: 4 NURSE [place], [address], [place] tel:+ [phone] 0001 - S Primary Shoulder pain Sep-2 [facility], [facility] [place] 7-201 ATILIO. 3357 4 . [place], [address], [place] tel:+ [phone] 0001 - S Primary Abdominal pain Aug-0 [facility], [facility] [place] 8-201 ATILIO. 3357 4 . [place], [address], [place] tel: [phone] 0001 - S Primary Crush injury of Aug-3 [facility], [facility] [place] foot 0-201 ATILIO. 3357 4 . [place], [address], [place] tel: [phone] 2019 - S Primary NauseaRib pain Aug-1 [facility] [employer], [facility] [place] 0-201 ATILIO. 3357 4 . [place], [address], [place] tel: [phone] 0001 - S Primary Chipped tooth Aug-0 [facility] [employer], [facility] [place] 2-201 ATILIO. 33 4 . [place], [address], [place] tel: [phone] 0001 - S Primary RUQ abdominal pain Yaron-2 [employer], [facility] [place] 3-201 ATILIO. 33 4 . [place], [address], [place] tel: [phone] 0001 - S Primary Radiculitis, Yaron-0 [facility], [facility] [place] Thoracic or 4-201 ZIGGY. 42 33-57 LumbarThumb pain 4 [address] [facility], [facility], [place], [address], [place] [address]. tel: tel: [phone] 0001 - S Primary Radiculitis, Feb-2 [facility], [facility] [place] Thoracic or Lumbar 5-201 ZIGGY. 42 33-57 4 [address] [facility], [place], [address], [place] [address]. tel: tel:+ [phone] 0001 - [facility] Primary Radiculitis, Nov-0 [facility], [facility] [place] Thoracic or Lumbar 1 33-57 3 [place], [address], [place] tel:+ [phone] 0001 - [facility] Primary Radiculitis, Nov-2 [facility], [facility] [place] Thoracic or Lumbar 4 33-57 3 [place], [address], [place] tel: [phone] 0001 - [facility] Primary Radiculopathy of Nov- [facility], [facility] [place] lumbar regionGERD 8 33-57 (gastroesophageal 3 Concan reflux disease) [place], [place], [facility], tel: [phone] 0001 - [facility] Primary Displacement, disc [facility], [facility] [place] NOS w/o myelopathy 33-57 3 [place], [address], [place] tel: [phone] 0001 - [facility] Primary Intervertebral disc Sep-3 [facility] [place] protrusion 0 33-57 3 [place], [address], [place] tel: [phone] 0001 - [facility] Primary Lumbar Sprain Or Sep-2 [facility] [place] Strain 6 33-57 3 [place], [address], [place] tel: [phone] 0001 - [facility] Primary Lumbar Sprain Or Sep-2 [facility] [place] Strain 4 33-57 3 [place], [address], [place] tel: [phone] 0001 - [facility] Primary Low back strain Sep-1 [facility] [place] 0-201 3357 3 [place], [address], [place] tel: [phone] 0001 - [facility] Primary Amenorrhea Aug-3 [facility], [facility] [place] 0-201 33-57 3 [place], [address], [place] tel: [phone] 0001 - [facility] Primary Sebaceous cyst Aug- VANNESSA [facility], [facility] [place] 9-201 JENIFFER. 3357 3 [address] [place], [address], [place] [address]. tel: tel: [phone] 2019 - [facility] Primary AnxietyAnxiety Apr-0 S Inc, [place] 8- 33-57 3 [place], [address], tel: [phone] 2019 - [facility] Primary AnxietyAnxiety Mar-2 S Inc, [facility] [place] 8- 33-57 3 [place], [address], [place] tel: [phone] 2019 - [facility] Primary [facility]DepressionAn [facility] [place] xietyDepression AUREA. Provider: 1 [address] [facility], [address] [place] [address], [address]. [place] [address], tel:+ [place], [address]. tel: [phone] tel: [phone] 2019 - [facility] Primary Routine Medical June- ANABELL Referring [facility], Care [place] ExamRoutine Medical AUREA. Provider: Exam 1 [address] [facility], [address] [place] [address], [address]. [place] [address], tel:+ [facility] [phone]. tel: [phone] tel:[phone] Family History Family Member Diagnosis Age At Onset Maternal grandmother Cancer, breast Family history of Marfan's syndrome Family history of Paternal uncle cancer - colon, 67 throat/neck, lung (nonsmoker) (Cause Of ) Family history of Diabetes mellitus No family history of Hypertension No family history of Hyperlipidemia Immunizations Vaccine Date Status Comments Tdap administered Note: Abstracted:07/09/2010 ; Source: New Immunization Record Payers Payer name Insurance type Covered alliance party ID Authorization(s) Camilo Gibson [id number] Social History Type Description Quantity Date Captured Comments Alcohol Use Details Unknown Caffeine Use Details Unknown Tobacco Use Status Smoking Status Unknown Vital Signs Date / Height Weight BMI Pulse Blood Temperature Respiratory Body Head BMI Time: Rate Pressure Rate Surface Circumference percentile Area Unknown Chief Complaint And Reason For Visit No information Reason For Referral Reason For Referral Unknown Plan Of Care Date Type Action Status Referral Ordered: ordered Mammogram, Screening, Bilateral, 2 Views Each Referral Ordered: ordered Mammogram Digital Diagnostic bilateral Bilateral Referral Ordered: ordered Breast Ultrasound Complete Bilateral Referral Referred To: ordered RADHA SCHROEDER MD [address] [place], [address] [phone] Ordered: Referrals: Neurosurgery. RADHA SCHROEDER MD. Evaluate and treat Referral Ordered: ordered MRI of brain w/o Contrast Appointment date/timeframe: 12/15/2016 Referral Ordered: ordered U/S Transvaginal G[employer] APPRENTICE Appointment date/timeframe: [place] Referral Referred To: ordered Elle Jaime NP Ordered: Referrals: Neurology. Elle Jaime NP. Location: [place], [place]. Evaluate and treat Appointment date/timeframe: 09/24/2015 Referral Ordered: ordered MRI lwr extrm joint, w/ocntrst Right ankle Appointment date/timeframe: Today Referral Referred To: ordered SIA PEDROZA MD [facility] [address] [facility] [address] [place], [phone] Ordered: Referrals: Plastic Surgery - Facial. SIA PEDROZA MD. Location: [facility] Otolaryngology (ENT). Evaluate and treat Appointment date/timeframe: 06/05/2015 Referral Ordered: ordered Referrals: Plastic Surgery - Facial. Evaluate and treat Appointment date/timeframe: 1 Month Referral Ordered: ordered MRI lwr extr jnt w/o cntrst fwd cnt Right Referral Ordered: ordered Xray Foot complete (Must choose side) Bilateral Referral Ordered: ordered Referrals: Podiatry. Evaluate and treat Appointment date/timeframe: 04/04/2015 Referral Ordered: ordered . Neurology. Consult and treat. Appointment date/timeframe: 1 Week Referral Ordered: ordered MRI upr extr joint, w/o contrast Right hand Referral Ordered: ordered Holter monitor/24 hrs, complete Appointment date/timeframe: 06/29/2014 Referral Ordered: ordered Echocardiography With Color Flow Appointment date/timeframe: 06/29/2014 Referral Ordered: ordered Nerve conductn motor ea nrv sensory Referral Ordered: ordered U/S Abdomen complete Appointment date/timeframe: 10/12/2013 Referral Ordered: ordered Xray Foot complete (Must choose side) Left Referral Ordered: ordered Xray Chest 2 view Referral Ordered: ordered . Dentist. Consult and treat. Appointment date/timeframe: 1 Week Referral Ordered: ordered . Gastroenterology. Consult and treat. Appointment date/timeframe: 2 Weeks Referral Referred To: ordered JAZMÍN SILVER [address] [place] [address], [address] [phone] Ordered: JAZMÍN SILVER Neurosurgery. Consult and treat. Appointment date/timeframe: 02/08/2013 Referral Ordered: ordered MRI of lumbar spine W/o Contrast Appointment date/timeframe: 11/26/2012 Referral Ordered: ordered MRI of thoracic spine W/o Contrast Appointment date/timeframe: 11/26/2012 Date Type Problem Goal Intervention Status Start Date Unknown History Of Present Illness Encounter Date Complaint History Of Present Illness No information Functional Status Encounter Date Functional Assessment Cognitive Assessment Unknown Medications Administered Medication Instructions Dosage Effective Dates (start - stop) Status Comments Drug Treatment Unknown Instructions Date Instruction Additional Information Work on cutting back with use of Related to Tobacco abuse Wellbutrin Continue with AA sessionsLet us know Related to Alcohol abuse, in if you need other resources remission ADD Wellbutrin 150mg dailyLet us know Related to Anxiety if any side effects or concerns with medicationContinue Celexa and Buspar as you've been doingHIGHLY recommend getting set up with counselingFollow up in 1 month, sooner if needed Work on a diet high in protein, focus Related to Weight loss, on eating at least 3 meals daily unintentional Stable - continue Pantoprazole daily Related to Gastroesophageal reflux disease, esophagitis presence not specified May be contributing to the Related to Anxiety aboveContinue to work on stress reduction Orders placed for lab work - we will Related to Diarrhea, unspecified call you with resultsTry Dicyclomine type 20mg 4 times daily - let us know if any side effects or concernsFollow up in 4-6 weeks, sooner if needed Will consider GI referral if no improvement Acute. Continue with counseling and Related to Anxiety other coping mechanisms. If you change your mind about trying medications either daily or as needed, contact office. Follow up in 2-3 months or sooner if needed. Stable. Continue same medication Related to Gastroesophageal reflux regimen. Follow up in 6 months or disease, esophagitis presence not sooner if needed. specified START Penlac apply to affect toenails Related to Toenail fungus daily. Use rubbing alcohol once weekly to remove residue. Will need to use daily for up to 1 year. START Clotrimazole cream opposite Penlac on toenails, under, and completely around. If you change your mind about seeing podiatry, contact office and I will place referral. Risks and benefits of new medication discussed. Patient verbalized understanding Work on relieving pressure. Can try Related to [place] of toe OTC mole skin to help with pressure. If you change your mind about seeing podiatry, contact office and I will place referral. Stable. Continue same medication Related to Chronic midline low back regimen. Follow up in 6 months or pain with left-sided sciatica sooner if needed. Discussed options. Recommend IUD or Related to control counseling Nexplanon. If you want a referral, contact office.Our office does Nexplanon but you can also see Family Planning for IUD and Nexplanon Stop Omeprazole. START Pantoprazole Related to Gastroesophageal reflux 40mg 1 cap in AM on empty stomach with disease, esophagitis presence not full glass of water. Follow up in 4-6 specified weeks for recheck or sooner if needed. Risks and benefits of new medication discussed. Patient verbalized understanding Mammogram and US ordered - we will Related to Breast pain, right contact you with an appt and results. AVOID all caffeine. Work on stress relieving techniques. Stable. STOP Tramadol, STOP Related to Chronic midline low back Cyclobenzaprine. CONTINUE Nabumetone. pain with left-sided sciatica Follow up in 6 months or sooner if needed. Stable. Continue with omeprazole. Related to Gastroesophageal reflux Follow up in 6 months or sooner if disease, esophagitis presence not needed.Overdue for fasting labs. specified Please complete at your earliest convenience and we will contact you with results. No change. If you change your mind Related to Acute pain of left about doing PT or getting a steroid shoulder injection. Exercises. Topicals. No improvement, Related to Acute pain of left can try PT. Contact office with any shoulder changes. Improved. Continue same medication Related to Gastroesophageal reflux regimen. Follow up in 3 months or disease, esophagitis presence not sooner if needed. specified Improved. Continue same medication Related to Memory problem regimen. Follow up in 3 months or sooner if needed.OVERDUE FOR FATSING LABS, PLEASE COMPLETE SOON POSSIBLE START Omeprazole 40mg 1 cap in AM on Related to Gastroesophageal reflux empty stomach 30 min prior to disease, esophagitis presence not breakfast. Follow up in 6-8 weeks. specified Risks and benefits of new medication discussed. Patient verbalized understanding Chronic/Worsening. Most likely mixture Related to Memory problem of stress and medication side effects. DECREASE Gabapentin 100mg 3 caps (300mg) 2x day. May decrease further after 2 weeks, to 100mg 2 caps (200mg) 2x day. Follow up in 6-8 weeks or sooner if needed. Most likely a sprain. Suggest wearing Related to Sprain of right wrist, cock up splint as needed to help with initial encounter pain. Contact office if pain does not improve or worsen. STOP Nexium per Pt's request. Continue Related to Gastroesophageal reflux with rantidine. Follow up if symptoms disease, esophagitis presence not are not well controlled. specified Will order MRI, we will contact you Related to Abnormal smell with an appt. Follow up depending on results. Most likely from viral illness that Related to Cough started in sinuses. Follow up if cough does not improvement or worsens. START Nexium 40mg 1 cap 2x day on an Related to Gastroesophageal reflux empty stomach 30-60 min prior to disease, esophagitis presence not eating. If insurance will not cover 2x specified day Nexium dosing, can take once daily. If not covered by insurance, contact office to discuss alternatives. START Ranitidine 150mg 1 tab 2x day. START Sodium Bicarb 650mg 1 tab 3x day prior to eating for 1 week, then as needed for breakthrough indigestion. Follow up in 1 month for recheck OR sooner if symptoms are not controlled or worsening. Risks and benefits of new medication discussed. Patient verbalized understanding START Meclizine 25mg 1 tab 3x day Related to Vertigo until symptoms have resolved. Follow up if no improvement or worsening. Will monitor for now. Contact office Related to Snapping right knee if you develop pain. Continue with Arnica Gel. Wear splint Related to Right wrist pain as needed. Follow up if no improvement or worsening. Doxycycline 100mg 1 tab 2x day for 10 Related to Acute non- recurrent days. Continue with supportive. Follow maxillary sinusitis up if no improvement or worsening. Highly supicious of carpal tunnel. Related to Finger numbness Continue with nabumetone. Wear splint daily for at least 3-4 days. Then only at bedtime. If symptoms continue or worsen, contact office will need to do additional testing. Correlates with menstrual cycle. Will Related to Acute left lower get transvaginal ultrasound. We will quadrant pain contact you with an appt for US. Follow up after US to discuss results and treatment plan. Contact office if symptoms worsen. Pt currently declining medication or Related to Headache above the eye imaging. Follow up as scheduled with [facility] neurology (Elle Carrasco NP). If you change your mind about medications or imaging, contact office. Contact office if symptoms worsen. Post op check.Suture removed , Related to Postop check steristrips applied, patient was instructed how to do it once /week for 3-4 weeks, supplies were provided.Pathology report reviewed with patient Rt pper lid surgery done today under Related to Benign skin lesion local anesthesia. No evidence of complication.patient was advised about post operative care/written instruction given.sterile q-tips and topical antibiotic ointment provided. antibiotic prescription given. Exercise handout given. May increase Related to Left anterior knee pain tramadol at bedtime as needed. Continue with nabumetone. Follow up in 1 week or sooner if needed. If no improvement, will discuss MRI. Continue with nabumetone, tramadol, Related to Acute pain of right and ice. Continue with exercises. Hold shoulder PT referral per Pt request. Contact office if you change your mind. Try use shoulder and not keep it immobilizer. Unchanged. Follow up with neurology as Related to Memory loss scheduled on September 23 Continue with same dose of gabapentin. Related to Radiculopathy, lumbar Follow up in 3 months or sooner if region needed. Worsening. Pt declines increasing. Related to Radiculopathy, lumbar Contact office if symptoms worsen or region you would like to go back to increase dose. Follow up in 1 month or sooner if needed. No change. Continue with current dose Related to Memory loss of gabapentin. Follow up with neurology as scheduled in August. Suggest counseling. Dividing chores. Related to Stress at home Warm epsom salt soaks. Pumice stone to Related to [place] of toe remove skin. Follow up if no improvement. Doxycycline 100mg 2 tabs once. Wound Related to Tick bite of neck , care. Follow up if no improvement or initial encounter ^ worsening. Referral placed to neurologyElle Related to Memory loss Luna, we will contact you with an appt. Trial of decreasing Gabapentin 400mg 1 cap 3x day. Follow up in 2 weeks. middle of Lt subrow area ,just abve Related to Benign skin lesion the Lt pupil,shoud be removed for functional Recommend surgery in office under local anesthesia, surgery including possible complication's were explained, patient understand and accept, scheduled. Will monitor for now - if symptoms Related to Dizziness worsen, contact office. Increase gabapentin 600mg 1 tab 3x Related to Radiculopathy, lumbar day. Follow up in 1 month or sooner if region needed. Referral to plastics Related to Sebaceous cyst Pt declines any intervention at this Related to Occasional time - Will continue to monitor numbness/prickling/tingling of fingers and toes No relief with treatment - will get Related to Acute right ankle pain MRI, we will contact you with an appt - Please contact Dr Mckeon's office for appt. WIll continue to monitor. Follow up Related to Sprain of right ankle, with chiro as scheduled. We can always unspecified ligament, subsequent refer to PT. Contact office if you encounter want to ago ahead with PT. Exercise handout given. Rest, ice, elevated. Compression wrap Related to Sprain of other ligament and splint as needed. Follow up if no of right ankle, initial encounter improvement or worsening. Continue same medication regimen. Related to Radiculopathy, lumbar Limited lifting. Follow up if no region improvement or worsening. XR done today - normal - we will Related to Bilateral foot pain contact you with official results if any changesReferral placed to podiatry. We will contact you with an appt. Stop Flexeril. Tizadine 4mg 1-2 tabs Related to Sprain of ligaments of every 6hrs as needed for muscle lumbar spine, initial encounter spasms. Continue with Nabutome 500mg 1 tab 3x day. Warm compresses, stretching, heating pads, etc. Follow up with occupational medicine. Wellbutrin XL 150mg 1 tab in AM. Related to Irritable Follow up in 1 month for recheck or sooner if needed. Lyrica 50mg 1 tab 3x day. If approved Related to Radiculopathy, lumbar by insurance, we will slowly decrease region gabapentin. Follow up after being on Lyrica for 2 weeks for recheck or sooner if needed. Fluid behind right ear. Will try Related to Dizziness Meclizine 25mg 1 tab 3x day as needed for dizzy. Follow up if no improvement or worsening. Ortho-tricyclen Lo 1 tab daily. If you Related to control counseling miss a dose, take it right away. If you miss 2 doses, stop pack, have period, use back up control method (condoms), and start new pack. Follow up in 3 months for recheck or sooner if needed. Vit E or cocoa butter to help with Related to Skin scarring scarring. Follow up as needed. Gabapentin 500mg (100mg + 400mg cap) Related to Back pain 3x day. Follow up if no improvement or if symptoms worsen. Full work up done in April 2014. Related to Memory loss Referral placed to neurology. We will contact you with an appt. Clindamycin 300mg 1 tab 2x day for 1 Related to Dental caries week. Follow up with oral surgery at [facility] as discussed. Follow up with [facility] as scheduled Related to Recurrent loss without current Benign. If you would like have it Related to Sebaceous cyst removed, we can refer you to plastics Xyzal 5mg 1 tab daily. Follow up if no Related to Eustachian tube disorder improvement or worsening. Zofran 8mg 1 tab 3x day as needed for Related to Nausea nausea. Small, frequent meals. Make sure you are drinking plenty of water. Follow with [facility] as Related to scheduled Stop Nambutome. Start Celebrex 200mg 1 Related to Tenosynovitis of the tab at bedtime. If no improvement, hand increase to 2x day. Stop Nambutome. Start Celebrex 200mg 1 Related to Knee pain, bilateral tab at bedtime. If no improvement, increase to 2x day. Pt declines XR at this time. Follow up in 2 weeks or sooner if needed. May increase Flexeril 10mg (2 tabs) 2x Related to Tenosynovitis of the day. Follow up as needed. hand Improving. Continue to wear splint as Related to Tenosynovitis of the needed for comfort. If no improvement hand or worsening, may need to be referred to ortho. Keflex 500mg 1 tab 2x day for 10 days Related to Chipped tooth - Please make an appt [facility] dentist for management. Improved. Continue same regimen. Related to Leg cramps Follow up in 3 months or sooner if needed. Keep fingers buddied taped. We will Related to Hand injury contact you with an appt. Echo and Holter monitor results. Related to Palpitations Reviewed with Pt. Will hold off on cardiology consult at this time per Pt's request. Increase Gabapentin 400mg 1 tab 3x Related to Leg cramps day. Follow up in 1 month for recheck or sooner if needed. [facility] office will call you with appt for Related to Palpitations echo and holter monitor. Once I review results, we can discuss options. Make sure you are hydrated. We will Related to Leg cramps check electrolytes. Follow up after labs to discuss results. Please get lab work done - If all Related to Memory loss normal, we may need to send to neurology. Start Rantidine 150mg 1-2 tabs at Related to GERD ( gastroesophageal bedtime as needed for heartburn. reflux disease) Follow up in 1 month or sooner if needed. Most likely related to sinus/stress. Related to Headache Pt declines Flonase and additional medications at this time. Please get fasting labs done - Follow Related to Palpitations up after to discuss results. Contact office if symptoms worsen or go to ED Zithromax 500mg 1 tab daily for 5 days Related to Sinusitis - Continue with Dayquil - Work note given. Increase fluids, rest. Follow up if no improvement in 1 week or worsening symptoms. Stop Flexeril, start Robaxin 500mg 1-2 Related to Back pain tabs at bedtime. Medrol dose mita as directed - do NOT take Nabutome or any other NSAIDs while on steroid. Try chiro. If no improvement, contact office. Pt declines xray at this time, Related to Wrist pain declines PT at this time. Nabumetone 500 mg 3x daily. Tramadol 50 mg 1 tablet every 6 hours as needed for pain. Wear soft wrist brace as needed for comfort. Follow up if symptoms are not improving or worsening with use of NSAIDs. Continue with Nabutemone 3x day - Related to Shoulder pain Tramadol you increase to 2 tabs as needed mod-severe pain. Rest, but keep shoulder moving. Use ice or heat. Follow up if no improvement. PT if no improvement. Abdominal US ordered. Please contact Related to Abdominal pain GI regarding abdominal pain. [phone] XR done = normal. Wear KYLEE bandage and Related to Crush injury of foot bear wt as tolerated. Use ice and elevated. Follow up as needed. Small, frequent, high protein meals - Related to Nausea Ensure 3x day - Follow up with GI. Increase Nexium 40mg 1 tab 2x day. Referral placed to [facility] GI. Nexium 40mg Related to RUQ abdominal pain 1 tab daily (sent to [facility]). Sucralfate 1gm 1 tab 4x day. Follow up after seeing GI.
[2019-04-19 12:56] LABS: Albumin 4.3 g/dL (3.2-5.2); Calcium 9.2 mg/dL (8.6-10.3); Potassium 3.5 mmol/L (3.5-5.0); Total Bilirubin 0.5 mg/dL (0.2-1.0)
[2019-04-19 13:02] LABS: Albumin/Globulin Ratio 1.5 (1-3); BUN/Creatinine Ratio 11.1 (8-20); EGFR African American 106.5 (>60); Globulin 2.9 g/dL (2-4); Total Protein 7.2 g/dL (6.4-8.9)
[2019-04-19 15:33] VITALS: BP 112/55
== END 2019-04-19 16:13 | disposition home or self-care (01) ==
LOC: ED 11:57
DX: R07.9 Chest pain, unspecified (principal); M94.0 Chondrocostal junction syndrome [Tietze]; F17.210 Nicotine dependence, cigarettes, uncomplicated; R06.02 Shortness of breath; F41.9 Anxiety disorder, unspecified; Z88.4 Allergy status to anesthetic agent; Z88.0 Allergy status to penicillin
CPT/HCPCS: 36415; 71045; 80053; 84484; 85025; 85610; 93005; 96361; 96374; 99282; J1885

== ENCOUNTER 2019-05-18 08:36 | Emergency (ER) | payer SELFPAY ==
[2019-05-18 08:40] VITALS: BP 104/63
--- NOTE | 2019-05-18 08:51 | ED ---
Respiratory - HPI Summary HPI Summary: 43 year old F arriving via EMS to [facility] accompanied by_ complains of cough x2 weeks. Patient reports Patient denies The patient rates the pain _/10 in severity. Symptoms aggravated by _. Symptoms alleviated by _. Medications reviewed. Allergies noted. - History of Current Complaint Chief Complaint: EDUpperRespComplaint Stated Complaint: GENERAL PER PT Pain Intensity: 3 - Allergy/Home Medications Allergies/Adverse Reactions: Allergies Allergy/AdvReac Type Severity Reaction Status Date / Time Penicillins Allergy Unknown Verified 05/18/19 08:39 Reaction Details lanocaine Allergy Palpitation Uncoded 10/02/18 20:21 s novacaine Allergy Palpitation Uncoded 10/02/18 20:21 s Home Medications: Home Medications Citalopram TAB* [CeleXA TAB*] 40 mg PO DAILY 11/18/18 [History Confirmed ] busPIRone TAB* [Buspar TAB*] 10 mg PO TID 04/19/19 [History Confirmed 04/19/19] PMH/Surg Hx/FS Hx/Imm Hx Endocrine/Hematology History: Denies: Hx Anticoagulant Therapy, Hx Diabetes Cardiovascular History: Denies: Hx Hypertension Respiratory History: Denies: Hx Asthma History: Denies: Hx Renal Disease Sensory History: Reports: Hx Contacts or Glasses Opthamlomology History: Reports: Hx Contacts or Glasses Neurological History: Reports: Hx Migraine Psychiatric History: Reports: Hx Anxiety - Surgical History Surgery Procedure, Year, and Place: appendectomy, exploratory, cholecystectomy Infectious Disease History: No Infectious Disease History: Denies: Traveled Outside the [place] in Last 30 Days - Family History Known Family History: Positive: Cardiac Disease - Social History Alcohol Use: None Substance Use Type: Reports: None Hx Tobacco Use: Yes Smoking Status (MU): Heavy Every Day Tobacco Smoker Review of Systems All Other Systems Reviewed And Are Negative: Yes Physical Exam - Summary Physical Exam Summary: Constitutional: Well-developed, Well-nourished, Alert. (-) Distressed Skin: Warm, Dry HENT: Normocephalic; Atraumatic Eyes: Conjunctiva normal Neck: Musculoskeletal ROM normal neck. (-) JVD, (-) Stridor, (-) Nuchal rigidity Cardio: Rhythm regular, rate normal, Heart sounds normal; Intact distal pulses; Radial pulses are 2+ and symmetric. (-) Murmur Pulmonary/Chest wall: Effort normal. (-) Respiratory distress, (-) Wheezes, (-) Rales Abd: Soft, (-) tenderness, (-) Distension, (-) Guarding, (-) Rebound Musculoskeletal: (-) Edema Lymph: (-) Cervical adenopathy Neuro: Alert, Oriented x3 Psych: Mood and affect Normal Triage Information Reviewed: Yes Vital Signs On Initial Exam: Initial Vitals Temp Pulse Resp BP Pulse Ox 99.5 F 71 16 104/63 100 05/18/19 08:37 05/18/19 08:37 05/18/19 08:37 05/18/19 08:37 05/18/19 08:37 Vital Signs Reviewed: Yes Procedures - Sedation Patient Received Moderate/Deep Sedation with Procedure: No Diagnostics - Vital Signs Vital Signs Temp Pulse Resp BP Pulse Ox 05/18/19 08:37 99.5 F 71 16 104/63 100 - Laboratory Lab Statement: Any lab studies that have been ordered have been reviewed, and results considered in the medical decision making process. Discharge ED - Discharge Plan Referrals: No Primary Care Phys,NOPCP [Primary Care Provider] - - Attestation Statements Document Initiated by Scribe: Yes Documenting Scribe: Kia Rodriguez Provider For Whom Scribe is Documenting (Include Credential): Hubert Rojas MD Scribe Attestation: Kia Henson, scribed for Hubert Rojas MD on 05/18/19 at 0847.
--- NOTE | 2019-05-18 09:15 | ED ---
Influenza-Like Illness - HPI Summary HPI Summary: 43 year old female presents with sinus congestion and cough for past two weeks. She states the cough has been dry. No recent travel. She was exposed to two people with strept but no other illness. No fevers. She states the sinus congestion has gotten worst. The pressure in her nose is worst when she leans forward. She had a sore throat but that has resolved. She admits to postnasal drip. No bowel pain. No nausea vomiting. She says that her ears have been itchy. she states has had wheezing occasionally. no history of asthma or copd. Has no medical conditions. She is a smoker. 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 - History of Current Complaint Chief Complaint: EDUpperRespComplaint Time Seen by Provider: 05/18/19 08:42 - Allergy/Home Medications Allergies/Adverse Reactions: Allergies Allergy/AdvReac Type Severity Reaction Status Date / Time Penicillins Allergy Unknown Verified 05/18/19 08:39 Reaction Details lanocaine Allergy Palpitation Uncoded 10/02/18 20:21 s novacaine Allergy Palpitation Uncoded 10/02/18 20:21 s Home Medications: Home Medications Citalopram TAB* [CeleXA TAB*] 40 mg PO DAILY 11/18/18 [History Confirmed ] busPIRone TAB* [Buspar TAB*] 10 mg PO TID 04/19/19 [History Confirmed 05/18/19] DOXYcycline CAP(*) [DOXYcycline 100MG CAP(*)] 100 mg PO BID #19 cap 05/18/19 [Rx ] PMH/Surg Hx/FS Hx/Imm Hx Endocrine/Hematology History: Denies: Hx Anticoagulant Therapy, Hx Diabetes Cardiovascular History: Denies: Hx Hypertension Respiratory History: Denies: Hx Asthma History: Denies: Hx Renal Disease Sensory History: Reports: Hx Contacts or Glasses Opthamlomology History: Reports: Hx Contacts or Glasses Neurological History: Reports: Hx Migraine Psychiatric History: Reports: Hx Anxiety - Surgical History Surgery Procedure, Year, and Place: appy,exploritory,nicol Infectious Disease History: No Infectious Disease History: Denies: Traveled Outside the [place] in Last 30 Days - Family History Known Family History: Positive: Cardiac Disease - Social History Alcohol Use: None Substance Use Type: Reports: None Hx Tobacco Use: Yes Smoking Status (MU): Heavy Every Day Tobacco Smoker Review of Systems Negative: Fever, Chills Positive: Sore Throat, Nasal Discharge Negative: Chest Pain Positive: Cough. Negative: Shortness Of Breath All Other Systems Reviewed And Are Negative: Yes Physical Exam Triage Information Reviewed: Yes Vital Signs On Initial Exam: Initial Vitals Temp Pulse Resp BP Pulse Ox 99.5 F 71 16 104/63 100 05/18/19 08:37 05/18/19 08:37 05/18/19 08:37 05/18/19 08:37 05/18/19 08:37 Vital Signs Reviewed: Yes Appearance: Positive: Well-Appearing Skin: Positive: Warm, Dry Head/Face: Positive: Normal Head/Face Inspection Eyes: Positive: Normal, EOMI, JOE, Conjunctiva Clear ENT: Positive: Pharynx normal, Nasal congestion, Nasal drainage, TMs normal, Sinus tenderness, Uvula midline, Other - soft palate symmetric. Negative: Tonsillar swelling, Tonsillar exudate, Trismus, Muffled voice Respiratory/Lung Sounds: Positive: Clear to Auscultation, Breath Sounds Present Cardiovascular: Positive: Normal, RRR Abdomen Description: Positive: Nontender, Soft Bowel Sounds: Positive: Present Musculoskeletal: Positive: Normal Neurological: Positive: Normal Psychiatric: Positive: Normal Procedures - Sedation Patient Received Moderate/Deep Sedation with Procedure: No Diagnostics - Vital Signs Vital Signs Temp Pulse Resp BP Pulse Ox 05/18/19 08:37 99.5 F 71 16 104/63 100 - Laboratory Lab Statement: Any lab studies that have been ordered have been reviewed, and results considered in the medical decision making process. Flu Symptom Course/Dx - Course Course Of Treatment: 43 year old female presents with sinus congestion and cough for past two weeks. She states the cough has been dry. No recent travel. She was exposed to two people with strept but no other illness. No fevers. She states the sinus congestion has gotten worst. The pressure in her nose is worst when she leans forward. She had a sore throat but that has resolved. She admits to postnasal drip. No bowel pain. No nausea vomiting. She says that her ears have been itchy. she states has had wheezing occasionally. no history of asthma or copd. Has no medical conditions. She is a smoker. 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 On exam sinus congestion noted with sinus tenderness. Pharynx normal. lungs clear to auscultation. Place on doxycycline for sinus infection. Gave inhaler as patient states has been feeling wheezy. Patient understands and agrees with the plan. - Diagnoses Differential Diagnosis/HQI/PQRI: Positive: Bronchitis, Upper Respiratory Infection, Other - sinusitis Provider Diagnoses: Sinusitis, Bronchitis Discharge ED - Sign-Out/Discharge Documenting (check all that apply): Patient Departure - Discharge Plan Condition: Good Disposition: HOME Prescriptions: DOXYcycline CAP(*) [DOXYcycline 100MG CAP(*)] 100 mg PO BID #19 cap Patient Education Materials: Sinusitis (ED) Forms: *Work Release Referrals: No Primary Care Phys,NOPCP [Primary Care Provider] - Additional Instructions: take doxycyline twice a day for 10 days use inhaler every 6 hours as needed for shortness of breath can use nasal saline in nose for congestion follow up with primary within 5 days Return to ED if develop any new or worsening symptoms - Billing Disposition and Condition Condition: GOOD Disposition: Home - Attestation Statements Provider Attestation: I was available for consultation for this patient. I did not evaluate the patient or participate in any medical decision making or disposition decisions unless I am specifically named in the chart as having consulted on the patient. If I have consulted on the patient, please see my own ED note on the patient encounter. Hubert Rojas MD
[2019-05-18] MEDS: DOXYcycline CAP(*) 100 MG PO ONE (09:23)
--- OUTSIDE RECORDS SUMMARY | 2019-05-18 09:25 | XMS REPORT | Continuity of Care Document ---
:1975 Author Organization 0001 - [facility] [employer] Address [address] [place] [address] Phone Care Team Providers Name Role Phone JOSE SWANN Unavailable Unavailable Allergies, Adverse Reactions, Alerts Substance Reaction Status DOXYCYCLINE HYCLATE nausea/vomiting Active penicillin V Nausea Active PROCAINE HCL rapid heartbeat (mild to moderate) Active lidocaine Itching Active Medications Medication Instructions Dosage Effective Dates Status Comments (start - stop) buspirone 10 mg tablet take 1 tablet by oral - Active route 3 times daily citalopram 40 mg take 1 tablet by oral 40 MG - Active tablet route every day Wellbutrin XL 150 mg take 1 tablet by oral 150 MG - Active 24 hr tablet, extended route every day release pantoprazole 40 mg take 1 tablet by oral 40 MG - Active tablet,delayed release route every day Problems Condition Effective Dates (start - stop) Clinical Status Alcohol abuse, in remission Mixed obsessional thoughts and acts Reactive depression Anxiety Tobacco abuse Tuberculosis screening Diarrhea, unspecified type Weight loss, unintentional Gastroesophageal reflux disease, esophagitis presence not specified Anxiety Anxiety Chronic midline low back pain with left-sided sciatica control counseling [place] of toe Toenail fungus Gastroesophageal reflux disease, [...] Tick bite of neck, initial encounter ^ [place] of toe Memory loss Benign skin lesion [...] Copied on Encounter 0001 - S Primary [facility] [place] JOSE. [address] [facility], [place], [place], [facility], [place], [address]. [address], [place] tel: tel: [phone] 0001 - S Primary [facility] [place] JOSE. 9 [address] [facility], [place], [place], [facility], [place], [address]. [address], [place] tel: tel: [phone] 0001 - S Primary [facility] [place] JOSE. 9 [address] [facility], [facility], [place], [address]. [address], [place] tel: tel: [phone] 0001 [facility] Primary Alcohol abuse, in [employer], [facility] [place] remissionMixed JOSE. obsessional 9 [address] [facility] thoughts and St, Street, actsReactive [facility] [place], bacco [address]. [address], [place] abuseTuberculosis tel: tel: [phone] 0001 - [facility] Primary Diarrhea, [facility] [place] unspecified JOSE. typeWeight loss, 9 [address] [facility] unintentionalGastro , Street, esophageal reflux [facility] disease, [place], [place], [place], esophagitis [address]. [address], [place] presence not tel: tel: specifiedAnxiety [phone] 0001 - S Primary Anxiety Apr- [employer] [facility], [facility] [place] 8- ATILIO. [address], [place], [address], [place] tel: [phone] 0001 - S Primary Chronic midline low Nov- [employer] [place] back pain with ATILIO. 33-57 left-sided [address], control Tarun counselingCorn of [place], [place], toeToenail [address], [place] fungusGastroesophag tel: eal reflux disease, [id number] esophagitis presence not specifiedOther chronic pain 0001 - Lab - [facility] Abnormal mammogram Sep- [employer], of both 1 ATILIO. 33-57 breastsScreening 8 . Delta mammogram, [place], [place], [address], [place] tel: [phone] 0001 - S Primary Breast pain, [employer] [place] rightGastroesophage ATILIO. 33-57 al reflux disease, 8 . Delta esophagitis [place], presence not [facility] [place], axillary painFamily [address], [place] history of breast tel: cancer [phone] 0001 - S Primary Gastroesophageal Yaron- [employer] [place] reflux disease, 3 ATILIO. 33-57 esophagitis 8 . Delta presence not [place], specifiedAcute pain Tarun [place], shoulderChronic [address], [place] midline low back tel: pain with [phone] left-sided sciaticaOther chronic pain 0001 - [facility] Primary Gastroesophageal June- [employer], [facility] [place] reflux disease, 4 ATILIO. 33-57 esophagitis 8 . Delta presence not [place], specifiedMemory Tarun problemAcute pain [place], [place], of left shoulder [address], [place] tel: [phone] 0001 - S Primary Memory Apr- [employer], [facility] [place] problemGastroesopha ATILIO. 33-57 geal reflux 8 . Delta disease, Street, esophagitis [place], specified [address], [place] tel:[phone] 0001 - [facility] Primary Chronic intractable Oct-2 [facility]ANG [facility] [place] headache, 6- ATILIO. 33-57 unspecified 7 . [address] headache [address], [place], [address], [place] tel:[phone] 0001 - [facility] Primary Chronic intractable Oct- [facility] [place] headache, 8 ATILIO. 33-57 unspecified 7 . [address] headache [address], [place], [address], [place] tel:[phone] 0001 - [facility] Primary Sprain of right Sep-2 [facility] [place] wrist, initial 7 ATILIO. 33-57 encounterAbnormal [address] . [address], migraineGastroesoph [place], [place], [address], [place] esophagitis tel:+ presence not [phone] specified 0001 - [facility] Primary Dysuria May-0 [facility] [place] 4-201 ATILIO. 33-57 7 . [facility], [place], [address], [place] tel:[phone] 0001 - [facility] Primary Cough Mar-0 [facility]ANG [facility] [place] 2-201 ATILIO. 33-57 7 [place], [address], [place] tel:+ [phone] 0001 - [facility] Primary Gastroesophageal Feb-0 [facility] [place] reflux disease, 3201 ATILIO. 33-57 esophagitis 7 . Delta presence not [place], [place], [address], [place] tel:[phone] 0001 - [facility] Primary Acute non-recurrent Mar- [facility] [place] maxillary 8- ATILIO. 33-57 sinusitisRight 7 . [place] wrist painSnapping [place], [place], [address], [place] tel:[phone] 0001 - [facility] Primary Finger numbness Nov-0 [facility] [place] 4-201 ATILIO. 33-57 6 [place], [address], [place] tel:[phone] 0001 - [facility] Primary Acute left lower Oct-0 [facility] [employer] [place] quadrant 7-201 ATILIO. 33-57 painHeadache above 6 . [place], [address], [place] tel:[phone] 0001 - [facility] Postop Sep- [facility] [employer], ENT/Facial checkEncounter for SIA. 30 33-57 Plastic removal of 6 [facility] suturesSebaceous [facility], cyst [address], [place], [place], [place], [address], [place] [address]. tel:+60 tel:[phone] 0001 - [facility] Benign skin Sep- [facility], ENT/Facial lesionSebaceous SIA. 30 33-57 Plastic cyst 6 [facility], [address], [place], [place], [place], [address], [place] [address]. tel:+60 tel:[phone] 0001 - [facility] Primary Left anterior knee Charles-2 [facility] [place] pain 7-201 ATILIO. 33-57 6 . [place], [address], [place] tel:[phone] 0001 - [facility] Primary Memory Aug-1 [facility] [place] lossRadiculopathy, 3-201 ATILIO. 33-57 lumbar regionAcute 6 . Delta pain of right Street, [place], [address], [place] tel:[phone] 0001 - [facility] Primary Memory Yaron-1 [facility] [place] lossRadiculopathy, 6-201 ATILIO. 33-57 lumbar region 6 [place], [address], [place] tel:[phone] 0001 - [facility] Primary Stress at homeTick Yaron-0 [facility] [place] bite of neck, 2-201 ATILIO. 33-57 initial encounter 6 . Delta ^[place], [address], [place] tel:+ [phone] 0001 - [facility] Benign skin Apr-0 YOVANY [facility], ENT/Facial lesionNeoplasm of 5-201 SIA. 30 33-57 Plastic uncertain behavior 6 Delta [place] [facility] of skin St, [facility], [facility], [place], [place], [place], [address], [place] [address]. tel:+ tel:+ [phone] 0001 - [facility] Primary DizzinessRadiculopa Mar-2 [facility] [place] thy, lumbar region 5-201 ATILIO. 33-57 6 [place], [address], [place] tel:[phone] 0001 - [facility] Primary Acute right ankle Mar-2 [facility] [place] pain 1-201 ATILIO. 33-57 6 [place], [address], [place] tel:+ [phone] 0001 - [facility] Primary Sebaceous cyst Mar-0 [facility] [place] 7-201 ATILIO. 33-57 6 [place], [address], [place] tel:[phone] 0001 - [facility] Primary Acute right ankle Mar-0 [facility] [place] painOccasional 4-201 ATILIO. 33-57 numbness/prickling/ 6 . Delta tingling of fingers Street, and toesSebaceous [place], [address], [place] tel:+ [phone] 0001 - [facility] Primary Sprain of right Feb-1 [facility] [place] ankle, unspecified 8-201 ATILIO. 33-57 ligament, 6 . [place] [address], [place], [address], [place] tel:[phone] 0001 - [facility] Primary Sprain of other Feb-1 [facility] [place] ligament of right 0-201 ATILIO. 33-57 ankle, initial 6 . [place], [address], [place] tel:+ [phone] 0001 - [facility] Bilateral foot Feb-0 UVAL[facility], Podiatry painAcquired 9-201 AMANDEEP. 33-57 [place] bilateral pes 6 [address] [place] cavusPlantar Cruz [place], fasciitis, [address], [place], [address], [place] [address]. tel:+ tel:+ [phone] 0001 - [facility] Primary Radiculopathy, [facility] [place] lumbar region 5-201 ATILIO. 33-57 6 [place], [address], [place] tel:+ [phone] 0001 - [facility] Primary Bilateral foot [facility] [place] painPain in left 8-201 ATILIO. 33-57 foot 6 . [place], [address], [place] tel:+ [phone] 0001 - [facility] Primary Sprain of ligaments Dec- [facility] [place] of lumbar spine, 0-201 ATILIO. 33-57 initial encounter 5 . [place], [address], [place] tel:+ [phone] 0001 - [facility] Primary Irritable Nov-1 [facility] [place] 8-201 ATILIO. 33-57 5 . [place], [address], [place] tel:+ [phone] 0001 - [facility] Primary DizzinessRadiculopa Oct-0 [facility] [place] thy, lumbar region 5-201 ATILIO. 33-57 5 . [place], [address], [place] tel:+ [phone] 0001 - S Primary Memory lossBack Sep-0 [facility] [place] painSkin 4-201 ATILIO. 33-57 scarringBirth 5 [place], [address], [place] tel:+ [phone] 0001 - [facility] Primary Eustachian tube Aug- [facility] [place] disorderSebaceous 7-201 ATILIO. 33-57 cystDental 5 . [place] cariesFormerly [facility] Street, [place], [address], tel:+ [phone] 0001 - [facility] Primary PregnancyNausea Aug- [facility] [place] 9- ATILIO. 33-57 5 . [place], [address], tel:[phone] 0001 - [facility] Primary Missed menstrual Aug- [facility] [place] period 3-201 ATILIO. 33-57 5 . [place], [address], tel:+ [phone] 0001 - [facility] Primary Tenosynovitis of Aug-0 [facility] [place] the handKnee pain, ATILIO. 33-57 bilateral 5 . [place], [address], tel:+ [phone] 0001 - [facility] Primary Tenosynovitis of Jul- [facility] [place] the hand ATILIO. 33-57 5 . [place], [address], tel:[phone] 0001 - [facility] Primary Tenosynovitis of Yaron-0 [facility] [place] the hand - ATILIO. 33-57 5 . [place], [address], tel:+ [phone] 0001 - [facility] Primary Tenosynovitis of [facility]ANG [facility] [place] the hand ATILIO. 33-57 5 . [place], [address], tel:+ [phone] 0001 - [facility] Primary Hand injury June- [facility] [place] 8-201 ATILIO. 33-57 5 . [place], [address], tel:[phone] 0001 - [facility] Primary Leg June- [facility] [place] crampsPalpitationsH - ATILIO. 33-57 and injuryChipped 5 . [place], [address], tel:[phone] 0001 - [facility] Primary June-0 [facility] [place] - ATILIO. 5 . [place], [address], [place] tel:[phone] 0001 - [facility] Primary PalpitationsLeg Apr-2 [facility]ANG S Inc, [facility] [place] cramps 7-201 ATILIO. 33 5 . [place], [address], [place] tel:[phone] 0001 - [facility] Primary Hand numbness Mar-1 [facility] S Inc, [facility] [place] 8-201 [place]IO. 5 . [place], [address], [place] tel:[phone] 0001 - [facility] Primary Memory lossGERD Mar-1 [facility] S Inc, [facility] [place] (gastroesophageal 3-201 ATILIO. reflux disease)Leg 5 . [place], [address], tel:[phone] 0001 - [facility] Primary HeadachePalpitation Sam-0 [facility] S Inc, [facility] [place] s 7-201 [place]IO. 5 [place], [address], [place] tel:[phone] 0001 - [facility] Primary Sinusitis Dec-2 [facility] S Inc, [facility] [place] 9-201 [place]. 4 . [place], [address], [place] tel:[phone] 0001 - [facility] Primary Back pain Oct-1 [facility] S [facility], [facility] [place] 7-201 [place]ILIO. 4 . [place], [address], [place] tel:[phone] 0001 - S Primary Wrist pain Oct-0 [facility] S Inc, [facility] [place] 3-201 ATILIO. 4 . [place], [address], [place] tel:[phone] 0001 - [facility] Primary General medical Sep-[address] [facility] Inc, [facility] [place] exam for 4-201 ATILIO. 33 administrative 4 . [place], [address], [place] tel:[phone] 0001 - [facility] Primary Screening for Sep-2 CANDOR Referring [facility] [place] pulmonary TB 3-201 NURSE. . Provider: 4 [place], [address], [place] tel:[phone] 0001 - S Primary Shoulder pain Aug-2 [facility] [place] 7-201 [place]ILIO. 4 [place], [address], [place] tel:[phone] 0001 - S Primary Abdominal pain Aug-0 [facility] [place] 8-201 [place]ILIO. 4 [place], [address], [place] tel:[phone] 0001 - S Primary Crush injury of Aug-3 [facility] S Inc, [facility] [place] foot 0-201 [place]ILIO. 4 [place], [address], [place] tel:[phone] 0001 - S Primary NauseaRib pain Aug-1 [facility], [facility] [place] 0-201 [place]ILIO. 4 [place], [address], [place] tel:[phone] 0001 - S Primary Chipped tooth Aug-0 [facility], [facility] [place] 2-201 [place]ILIO. 4 [place], [address], [place] tel:[phone] 0001 - S Primary RUQ abdominal pain Yaron-2 [facility] [place] 3-201 [place]ILIO. 4 [place], [address], [place] tel:[phone] 0001 - S Primary Radiculitis, Yaron-0 CORPORA [facility] [place] Thoracic or 4-201 ZIGGY. 42 33-57 LumbarThumb pain [address] [facility], [facility], [place], [address], [place] [address]. tel:+60 tel:[phone] 0001 - S Primary Radiculitis, Feb-2 [facility] S Inc, [facility] [place] Thoracic or Lumbar 5-201 ZIGGY. 42 33-57 [address] [facility], [facility], [place], [address], [place] [address]. 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 33-57 3 [place], [address], [place] tel:+ [phone] 0001 - [facility] Primary Intervertebral disc Sep-3 [facility] [place] protrusion 0-201 33-57 3 [place], [address], [place] tel: [phone] 2019 - [facility] Primary Lumbar Sprain Or Sep-2 [facility] [place] Strain 6-201 33-57 3 [place], [address], [place] tel:+ [phone] 0001 - [facility] Primary Lumbar Sprain Or Sep-2 [facility] [place] Strain 4-201 33-57 3 [place], [address], [place] tel:+ [phone] 0001 - [facility] Primary Low back strain Sep-1 [facility] [place] 0-201 33-57 3 [place], [address], [place] tel:+ [phone] 0001 - [facility] Primary Amenorrhea Charles-3 [facility] [place] 0-201 33-57 3 [place], [address], [place] tel:+ [phone] 2019 - [facility] Primary Sebaceous cyst Charles-[address] [facility] Inc, [facility] [place] 9-201 JENIFFER. 3357 3 [address] [facility], [facility], [place], [address], [place] [address]. tel: tel: [phone] 0001 - [facility] Primary AnxietyAnxiety Apr-0 S Inc, [place] 8- 33-57 3 [place], [address], [place] tel: [phone] 2019 - [facility] Primary AnxietyAnxiety Mar-[address] [facility] Inc, [facility] [place] 8- [address]357 3 [place], [address], [place] tel: [phone] 2019 - [facility] Primary AnxietyDepressionAn Nov-0 ANABELL Referring [facility], [facility] [place] xietyDepression AUREA. Provider: 1 54 [facility], [place], [address] [place] [address], [address]. [place], [address], tel:+ [place], [address]. tel: [phone] tel: [phone] 0001 - [facility] Primary Routine Medical May- ANABELL Referring [facility], [facility] [place] ExamRoutine Medical AUREA. Provider: Exam 1 54 [facility], [place], [address] [place] [address], [address]. [facility] [address], tel:+ [place], [address]. tel: [phone] tel:+ [phone] Family History Family Member Diagnosis Age At [...] Record Payers Payer name Insurance type Covered democrat ID Authorization(s) Camilo Gibson [id number] Social History Type Description Quantity Date Captured Comments Unknown Vital Signs Date / Height Weight [...] Referred To: ordered RADHA SCHROEDER MD [address] [place], [address] [phone] Ordered: Referrals: Neurosurgery. RADHA SCHROEDER MD. Evaluate and treat Referral Ordered: ordered MRI of brain w/o Contrast Appointment date/timeframe: 12/15/2016 Referral Ordered: ordered U/S Transvaginal [employer] SPECIALIST Appointment date/timeframe: [facility] Referral Referred To: ordered Elle Jaime NP Ordered: Referrals: Neurology. Elle Jaime NP. Location: [place], [place]. Evaluate and treat Appointment date/timeframe: 09/24/2015 Referral Ordered: ordered MRI lwr extrm joint, w/ocntrst Right ankle Appointment date/timeframe: Today Referral Referred To: ordered SIA PEDROZA MD [facility] [address], [address] [phone] Ordered: Referrals: Plastic Surgery - Facial. SIA PEDROZA MD. Location: [facility] Otolaryngology (ENT). Evaluate and treat Appointment [...] Weeks Referral Referred To: ordered JAZMÍN SILVER [address] [place] [address], [address] [phone] Ordered: JAZMÍN SILVER Neurosurgery. Consult and treat. [...] on relieving pressure. Can try Related to [place] of toe OTC mole skin to help [...] eye imaging. Follow up as scheduled with [facility] neurology (Elle Carrasco NP). If you [...] Dividing chores. Related to Stress at home Doxycycline 100mg 2 tabs once. Wound Related to Tick bite of neck , care. Follow up if no improvement or initial encounter ^ worsening. Warm epsom salt soaks. Pumice stone to Related to [place] of toe remove skin. Follow up if no improvement. Referral placed to Elle garay Related to Memory loss Luna, we will [...] week. Follow up with oral surgery at [facility] as discussed. Follow up with Castañeda as scheduled Related to Recurrent loss without current Benign. If you would like have it Related to Sebaceous cyst removed, we can refer you to plastics Xyzal 5mg 1 tab daily. Follow up if no Related to Eustachian tube disorder improvement or worsening. Follow with [facility] as Related to scheduled Zofran 8mg 1 tab 3x day as needed for Related to Nausea nausea. Small, frequent meals. Make sure you are drinking plenty of water. Stop Nambutome. Start Celebrex 200mg 1 Related to Knee pain, bilateral tab at bedtime. If no improvement, increase to 2x day. Pt declines XR at this time. Follow up in 2 weeks or sooner if needed. Stop Nambutome. Start Celebrex 200mg 1 Related to Tenosynovitis of the tab at bedtime. If no improvement, hand increase to 2x day. May increase Flexeril 10mg (2 tabs) 2x Related to Tenosynovitis of the day. Follow up as needed. hand Improving. Continue to wear splint as Related to Tenosynovitis of the needed for comfort. If no improvement hand or worsening, may need to be referred to ortho. Keflex 500mg 1 tab 2x day for 10 days Related to Chipped tooth - Please make an appt [facility] dentist for management. Improved. Continue [...] to Abdominal pain GI regarding abdominal pain. [phone] XR done = normal. Wear KYLEE bandage and Related to Crush injury of foot bear wt as tolerated. Use ice and elevated. Follow up as needed. Small, frequent, high protein meals - Related to Nausea Ensure 3x day - Follow up with GI. Increase Nexium 40mg 1 tab 2x day. Referral placed to [facility] GI. Nexium 40mg Related to RUQ abdominal pain 1 tab daily (sent to [facility]). Sucralfate 1gm 1 tab 4x day. Follow up after seeing GI.
--- OUTSIDE RECORDS SUMMARY | 2019-05-18 09:25 | XMS REPORT | Continuity of Care Document ---
:1975 Author Organization 0001 - [facility] [facility] Address [address] [place] [address] Phone Care Team Providers Name Role Phone ANITA MARIE MD Unavailable Unavailable Allergies, Adverse Reactions, Alerts Substance [...] back pain with left-sided sciatica control counseling [place] of toe Toenail fungus Gastroesophageal reflux disease, [...] Tick bite of neck, initial encounter ^ [place] of toe Memory loss Benign skin lesion [...] Copied on Encounter 0001 - S Primary FRANK [facility] [employer] [place] ANITA. [address] 0 [facility], [place], [place], [place] [address]. [place], tel:[phone], [place] [address] tel:[phone] 0001 - S Primary LOIS [facility] [place] JOSE. 42 33[address] [place], [place], [place], [facility]. Tarun tel:[phone] [place], [address], [place] tel:[phone] 0001 - S Primary [facility]IS [facility] [place] JOSE. 42 33-57 [address] [place], [place], [place], [facility]. Tarun tel:[phone] [place], [address], [place] tel:[phone] 0001 - [facility] Primary Alcohol abuse, [facility], [facility] [place] in JOSE. 42 33-57 remissionMixed 9 W [facility] obsessional [place], [place], [place], [facility] and [facility]. Tarun actsReactive tel:[phone] [place], [place], depressionAnxiet [phone], [place] yTobacco tel:[phone] abuseTuberculosi [phone] s screening 0001 - S Primary Diarrhea, [facility]IS [facility] [place] unspecified JOSE. 42 33-57 typeWeight loss, 9 W [facility] unintentionalGas [place], [place], [place], [place] [id number]. Tarun reflux disease, tel:[phone] [place], esophagitis [address], [place] presence not tel:+ specifiedAnxiety [phone] 0001 - [facility] Primary Anxiety [facility], [facility] [place] 8- ATILIO. . 33-57 9 Delta Ortega, [place], [address], [place] tel: [phone] 0001 - [facility] Primary Chronic midline [employer], [facility] [place] low back pain ATILIO. . 33-57 with left-sided [address], control [place], [place], of toeToenail [address], [place] fungusGastroesop tel: hageal reflux [phone] disease, esophagitis presence not specifiedOther chronic pain 0001 - Lab - [facility] Abnormal [employer], mammogram of ATILIO. . 3357 both 8 Delta breastsScreening Jordan, mammogram, [place], [address], [place] tel: [phone] 0001 [facility] Primary Breast pain, [employer] [place] rightGastroesoph ATILIO. . 33-57 ageal reflux 8 Delta disease, [place], esophagitis Tar[place] presence not [place], [place], specifiedLeft [address], [place] axillary tel: painFamily [phone] history of breast cancer 0001 - [facility] Primary Gastroesophageal [employer] [place] reflux disease, 3 ATILIO. . 33-57 esophagitis [address] presence [address], specifiedAcute Tarun pain of left [place], [place], shoulderChronic [address], [place] midline low back tel:[phone] pain with [phone] left-sided sciaticaOther chronic pain 0001 - [facility] Primary Gastroesophageal [facility], [facility] [place] reflux disease, ATILIO. . 33-57 esophagitis 8 Delta presence not Jordan, specifiedMemory Tarun problemAcute [place], [place], pain of left [address], [place] shoulder tel:+ [phone] 0001 - S Primary Memory May- [facility], [facility] [place] problemGastroeso 9-201 ATILIO. . 33-57 phageal reflux 8 Delta disease, Street, esophagitis [place], [place] [address], [place] tel:[phone] 0001 - [facility] Primary Chronic Oct-2 [facility]ANG [facility] [place] intractable 6-201 ATILIO. . 33-57 headache, [address], [place], [address], [place] tel:+ [phone] 0001 - [facility] Primary Chronic Oct-1 [facility]ANG [facility] [place] intractable 8-201 ATILIO. . 33-57 headache, [address], [place], [address], [place] tel:[phone] 0001 - [facility] Primary Sprain of right Sep-2 [facility]ANG [facility] [place] wrist, initial 7-201 ATILIO. . 33-57 encounterAbnorma [address], migraineGastroes [employer] ophageal reflux [place], [place], disease, [address], [place] esophagitis tel:+ presence not [phone] specified 0001 - [facility] Primary Dysuria May-0 [facility] [place] 4-201 ATILIO. . 33-57 7 [place], [address], [place] tel:+ [phone] 0001 - [facility] Primary Cough Mar-0 [facility] [place] 2-201 ATILIO. . 33-[address], [place], [address], [place] tel:+ [phone] 0001 - [facility] Primary Gastroesophageal Feb-0 [facility]ANG [facility] [place] reflux disease, 3-201 ATILIO. . 33-57 esophagitis [address], [place], [address], [place] tel:+ [phone] 0001 - [facility] Primary Acute Sam- [facility]ANG [facility] [place] non-recurrent 8-201 ATILIO. . 33-57 [address]illary [address], wrist [employer] painSnapping [place], [place], [place] [address], [place] tel:+ [phone] 0001 - S Primary Finger numbness Nov-0 [facility] [place] 4-201 ATILIO. . 33-57 6 [place], [address], [place] tel:[phone] 0001 - S Primary Acute left lower Oct-0 [facility]ANG [facility] [place] quadrant 7-201 ATILIO. . 33-57 painHeadache [address], [place], [address], [place] tel:[phone] 0001 - S Postop Sep- YOVANY STOVALL. [facility], ENT/Facial checkEncounter 30 [place] 33-57 Plastic for removal of 6 St, Suite [place] [facility] suturesSebaceous 355, [place], [place], [place] [address]. [place], tel:[phone] [facility] [place] [address] tel:[phone] 0001 - S Benign skin Sep- YOVANY STOVALL. S Inc, ENT/Facial lesionSebaceous 30 [place] 33-[address], Suite [place] [facility] [address], [place], [place] [address]. [place], [place], tel:[phone], [place] [address] tel:[phone] 0001 - S Primary Left anterior Aug-2 [facility]ANG [facility] [place] knee pain 7-201 ATILIO. . 33-57 6 [place], [address], [place] tel:[phone] 0001 - S Primary Memory Aug- [facility], [facility] [place] lossRadiculopath 3-201 ATILIO. . 33-57 y, lumbar [address] [place] [address] pain [address], [place], [address], [place] tel:[phone] 0001 - S Primary Memory Yaron- [facility]ANG [facility], [facility] [place] lossRadiculopath 6-201 ATILIO. . 33-57 y, lumbar region 6 [place], [address], [place] tel:[phone] 0001 - S Primary Stress at Yaron-0 [facility]ANG [facility] [place] homeTick bite of 2-201 ATILIO. . 33-57 neck, initial 6 [place] encounter ^[address] [place] [address], [place], [address], [place] tel:[phone] 0001 - [facility] Benign skin Apr-0 YOVANY SIA. [facility], ENT/Facial lesionNeoplasm 5-201 30 Delta 33-57 Plastic of uncertain 6 [address], Suite [place] [facility] behavior of skin 355, [place], [place], [place] [address]. [place], [place], tel:[phone] [facility] [place] [address] tel:[phone] 0001 - [facility] Primary DizzinessRadicul Mar-2 LANG [facility], [facility] [place] opathy, lumbar 5-201 ATILIO. . 33-57 region 6 [facility], [place], [address], [place] tel:[phone] 0001 - [facility] Primary Acute right Mar-2 LANG [facility] [place] ankle pain 1-201 ATILIO. . 33-57 6 [facility], [place], [address], [place] tel:+ [phone] 0001 - [facility] Primary Sebaceous cyst Mar-0 LANG [facility] [place] 7-201 ATILIO. . 33-57 6 [facility], [place], [address], [place] tel:[phone] 0001 - [facility] Primary Acute right Mar-0 LANG [facility] [place] ankle 4-201 ATILIO. . 33-57 painOccasional 6 [place] numbness/prickli Street, ng/tingling of One[place] fingers and [place], [place], toesSebaceous [facility], [place] cyst tel:[phone] 0001 - [facility] Primary Sprain of right Feb-1 [facility]ANG [facility] [place] ankle, 8-201 ATILIO. . 33-57 unspecified 6 Delta ligament, Street, [place], [address], [place] tel:[phone] 0001 - [facility] Primary Sprain of other Feb-1 [facility]ANG [facility] [place] ligament of 0-201 ATILIO. . 33-57 right ankle, [address] [place] [address], [place], [address], [place] tel:[phone] 0001 - S Bilateral foot Feb-0 UVALDO AMANDEEP. S Inc, Podiatry painAcquired [address] 33-57 [place] bilateral pes [address], [place] cavusPlantar [place], [place], Street, mati, [address]. Tarun bilateral tel:[phone] [place], [address], [place] tel:[phone] 0001 - S Primary Radiculopathy, [facility] [employer] [place] lumbar region 5-201 ATILIO. . 33-57 6 [place], [address], [place] tel:[phone] 0001 - S Primary Bilateral foot [facility] [employer] [place] painPain in left 8-201 ATILIO. . 33-57 foot 6 [place], [address], [place] tel:[phone] 0001 - S Primary Sprain of Dec- [facility] [employer] [facility] [place] ligaments of 0-201 ATILIO. . 33-57 lumbar spine, 5 [facility], [place], [address], [place] tel:[phone] 0001 - S Primary Irritable Nov- [employer], [facility] [place] 8-201 ATILIO. . 33-57 5 [place], [address], [place] tel:[phone] 0001 - S Primary DizzinessRadicul Oct-0 [employer], [facility] [place] opathy, lumbar 5-201 ATILIO. . 33-57 region 5 [place], [address], [place] tel:[phone] 0001 - S Primary Memory lossBack Sep-0 [employer] [facility] [place] painSkin 4-201 ATILIO. . 33-57 scarringBirth 5 [facility], [place], [address], [place] tel:[phone] 0001 - S Primary Eustachian tube Aug- [employer], [facility] [place] disorderSebaceou 7-201 ATILIO. . 33-57 s cystDental 5 [facility], [place], [address], [place] tel:[phone] 0001 - [facility] Primary PregnancyNausea Aug-2 [facility]ANG [facility] [place] 9-201 ATILIO. . 33-57 5 [place], [address], [place] tel:[phone] 0001 - [facility] Primary Missed menstrual Aug- [facility]ANG [facility] [place] period 3-201 ATILIO. . 33-57 5 [place], [address], [place] tel:+ [phone] 0001 - [facility] Primary Tenosynovitis of Aug-0 [facility]ANG [facility], [facility] [place] the handKnee 1-201 ATILIO. . 33-57 pain, bilateral 5 [place], [address], [place] tel:[phone] 0001 - [facility] Primary Tenosynovitis of Yaron-1 LANG [facility] [place] the hand 8-201 ATILIO. . 33-57 5 [place], [address], [place] tel:+ [phone] 0001 - [facility] Primary Tenosynovitis of Yaron-0 LANG [facility], [facility] [place] the hand 1-201 ATILIO. . 3357 5 [place], [address], [place] tel:+ [phone] 0001 - [facility] Primary Tenosynovitis of June- [facility]ANG [facility] [place] the hand 9-201 ATILIO. . 57 5 [place], [address], [place] tel:[phone] 0001 - [facility] Primary Hand injury June- LANG [facility] [place] 8-201 ATILIO. . 33-57 5 [place], [address], [place] tel:[phone] 0001 - [facility] Primary Leg June- LANG [facility] [place] crampsPalpitatio 7-201 ATILIO. . 33-57 nsHand 5 [facility], [place], [address], [place] tel:[phone] 0001 - [facility] Primary May-0 LANG [facility] [place] 7-201 ATILIO. . 3357 5 [place], [address], [place] tel:[phone] 0001 - S Primary PalpitationsLeg Apr-2 [facility]ANG [facility] [place] cramps 7-201 ATILIO. . 3357 5 [place], [address], [place] tel:[phone] 0001 - S Primary Hand numbness Mar-1 [facility]ANG [facility] [place] 8-201 ATILIO. . 57 5 [place], [address], [place] tel:[phone] 0001 - S Primary Memory lossGERD Mar-1 [facility]ANG [facility] [place] (gastroesophagea 3-201 ATILIO. . 3357 l reflux 5 [facility])[place], [address], [place] tel:[phone] 0001 - S Primary HeadachePalpitat Sam-0 [facility]ANG [facility] [place] ions 7-201 ATILIO. . 3357 5 [place], [address], [place] tel:[phone] 0001 - S Primary Sinusitis Dec-2 [facility] [place] 9-201 ATILIO. . 3357 4 [place], [address], [place] tel:[phone] 0001 - S Primary Back pain Oct-1 [facility]ANG [facility] [place] 7-201 ATILIO. . 3357 4 [place], [address], [place] tel:[phone] 0001 - S Primary Wrist pain Oct-0 [facility]ANG [facility] [place] 3-201 ATILIO. . 3357 4 [place], [address], [place] tel:[phone] 0001 - S Primary General medical Sep-2 [facility] [place] exam for 4-201 ATILIO. . 3357 administrative 4 [place], [address], [place] tel:+ [phone] 0001 - [facility] Primary Screening for Sep-2 CANDOR Referring [facility], [facility] [place] pulmonary TB 3-201 NURSE. . Provider: 4 N[place], [address], [place] tel:+ [phone] 0001 - S Primary Shoulder pain Aug-2 [facility]ANG [facility] [place] 7-201 ATILIO. . 4 [place], [address], [place] tel:[phone] 0001 - S Primary Abdominal pain Aug-0 [facility]ANG [facility] [place] 8-201 ATILIO. . 4 [place], [address], [place] tel:[phone] 0001 - S Primary Crush injury of Aug-3 LANG S Inc, [facility] [place] foot 0-201 ATILIO. . 4 [place], [address], [place] tel:[phone] 0001 - S Primary NauseaRib pain Aug-1 [facility]ANG [facility] [place] 0-201 ATILIO. . 4 [place], [address], [place] tel:[phone] 0001 - S Primary Chipped tooth Aug-0 [facility]ANG [facility] [place] 2-201 ATILIO. . 4 [place], [address], [place] tel:[phone] 0001 - S Primary RUQ abdominal Yaron-2 [facility]ANG [facility] [place] pain 3-201 ATILIO. . 4 [place], [address], [place] tel:[phone] 0001 - S Primary Radiculitis, Yaron-0 CORPORA [facility] [place] Thoracic or 4-201 ZIGGY. 42 W 57 LumbarThumb pain 4 [address] , [facility], [address], tel:[phone] [facility] [place] [address] tel:[phone] 0001 - [facility] Primary Radiculitis, Apr- [facility] [place] Thoracic or 5- ZIGGY. 42 W 33-57 Lumbar 4 [facility], [address], tel:[phone], [place] [address] tel:[phone] 0001 - [facility] Primary Radiculitis, [facility] [place] Thoracic or 1 33-57 Lumbar 3 [place], [address], [place] tel:[phone] 0001 - [facility] Primary Radiculitis, [facility] [place] Thoracic or 33-57 Lumbar 3 [place], [address], [place] tel:[phone] 0001 - [facility] Primary Radiculopathy of [facility], [facility] [place] lumbar 8-201 33-[address] [place] [address] (gastroesophagea Street, reflux Tarun 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 3 [place], [address], [place] tel:[phone] 0001 - [facility] Primary Intervertebral Sep-3 [facility] [place] disc protrusion 0-201 33-57 3 [place], [address], [place] tel:[phone] 0001 - [facility] Primary Lumbar Sprain Or Sep-2 [facility] [place] Strain 6-201 33-57 3 [place], [address], [place] tel:[phone] 0001 - [facility] Primary Lumbar Sprain Or Sep-2 [facility] [place] Strain 4-201 33-57 3 [place], [address], [place] tel:[phone] 0001 - [facility] Primary Low back strain Sep-1 [facility] [place] 0-201 33-57 3 [place], [address], [place] tel:+ [phone] 2019 - [facility] Primary Amenorrhea Charles-3 S Inc, [facility] [place] 0-201 3357 3 [place], [address], [place] tel:+ [phone] 2019 - S Primary Sebaceous cyst Charles-0 VANNESSA S Inc, [facility] [place] 9-201 JENIFFER. 42 33-57 3 W [facility], [place] [address]. [place], tel:[phone], [place] [address] tel:+ [phone] 2019 - [facility] Primary AnxietyAnxiety Apr-0 S Inc, [facility] [place] 8 3357 3 [place], [address], [place] tel:+ [phone] 2019 - [facility] Primary AnxietyAnxiety Mar-2 S Inc, [facility] [place] 8 3357 3 [place], [address], [place] tel:+ [phone] 2019 - [facility] Primary AnxietyDepressio Nov-0 ANABELL Referring S Inc, [facility] [place] nAnxietyDepressi 7 AUREA. 54 Provider: 33-57 on 1 [place], [place], [facility], [address]. 54 [facility] tel:[phone] [place], [place], [address] [place] [address], [place], [address]. tel: tel:[phone] 2019 - [facility] Primary Routine Medical May-1 ANABELL Referring S Inc, [facility] [place] ExamRoutine 0-201 AUREA. 54 Provider: 33-57 Medical Exam 1 [place], [facility], [address]. 54 [facility] tel:[phone] [place], [address] [facility] [address], [place], [address]. tel: tel:[phone] Family History Family Member Diagnosis Age At [...] Record Payers Payer name Insurance type Covered constitution party ID Authorization(s) Camilo Gibson [id number] Social History Type Description Quantity Date Captured [...] Referred To: ordered RADHA SCHROEDER MD [address] [place], [phone] Ordered: Referrals: Neurosurgery. RADHA SCHROEDER MD. 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 Elle Jaime NP. Location: [place], [place]. Evaluate and treat Appointment date/timeframe: 09/24/2015 Referral Ordered: ordered MRI lwr extrm joint, w/ocntrst Right ankle Appointment date/timeframe: Today Referral Referred To: ordered SIA PEDROZA MD [facility] [address], [phone] Ordered: Referrals: Plastic Surgery - Facial. SIA PEDROZA MD. Location: [facility] Otolaryngology (ENT). Evaluate and treat Appointment date/timeframe: [...] Weeks Referral Referred To: ordered JAZMÍN SILVER [address] [place] [address], [address] [phone] Ordered: JAZMÍN SILVER Neurosurgery. Consult and treat. [...] on relieving pressure. Can try Related to [place] of toe OTC mole skin to help [...] see Family Planning for IUD and Nexplanon Mammogram and US ordered - we will Related to Breast pain, right contact you with an appt and results. AVOID all caffeine. Work on stress relieving techniques. Stop Omeprazole. START Pantoprazole Related to Gastroesophageal reflux 40mg 1 cap in AM on empty stomach with disease, esophagitis presence not full glass of water. Follow up in 4-6 specified weeks for recheck or sooner if needed. Risks and benefits of new medication discussed. Patient verbalized understanding Stable. STOP Tramadol, STOP Related to Chronic [...] eye imaging. Follow up as scheduled with [facility] neurology (Elle Carrasco NP). If you change [...] use shoulder and not keep it immobilizer. Continue with same dose of gabapentin. Related to Radiculopathy, lumbar Follow up in 3 months or sooner if region needed. Unchanged. Follow up with neurology as Related to Memory loss scheduled on September 23 Worsening. Pt declines increasing. Related to Radiculopathy, [...] salt soaks. Pumice stone to Related to [place] of toe remove skin. Follow up if no improvement. Referral placed to Elle garay Related to Memory loss Luna, we will contact you with an appt. Trial of decreasing Gabapentin 400mg 1 cap 3x day. Follow up in 2 weeks. Apr-05-2016 middle of Lt subrow area ,just abve [...] week. Follow up with oral surgery at [place] as discussed. Follow up with [place] as scheduled Related to Recurrent loss without [...] are drinking plenty of water. Follow with [facility] as Related to scheduled Stop Namb[place]ome. [...] Chipped tooth - Please make an appt [facility] dentist for management. Improved. Continue [...] to Abdominal pain GI regarding abdominal pain. [phone] XR done = normal. Wear KYLEE bandage and Related to Crush injury of foot bear wt as tolerated. Use ice and elevated. Follow up as needed. Small, frequent, high protein meals - Related to Nausea Ensure 3x day - Follow up with GI. Increase Nexium 40mg 1 tab 2x day. Referral placed to [facility] GI. Nexium 40mg Related to RUQ abdominal pain 1 tab daily (sent to [facility]). Sucralfate 1gm 1 tab 4x day. Follow up after seeing GI.
== END 2019-05-18 09:25 | disposition home or self-care (01) ==
LOC: ED 08:36
DX: J32.9 Chronic sinusitis, unspecified (principal); J40 Bronchitis, not specified as acute or chronic; F41.9 Anxiety disorder, unspecified; F17.200 Nicotine dependence, unspecified, uncomplicated; Z79.899 Other long term (current) drug therapy; Z88.0 Allergy status to penicillin; Z88.4 Allergy status to anesthetic agent; Z88.8 Allergy status to other drugs, medicaments and biological substances
CPT/HCPCS: 99282; A9270-GY